=== PATIENT | male | born 1995 | race Caucasian/White ===

== ENCOUNTER 2022-07-14 23:50 | Emergency (ER) | payer OTHER, SELFPAY ==
[2022-07-14 23:54] VITALS: BP 169/99; PULSE 93; RESP 20; TEMP 36.4; O2SAT 100
[2022-07-15] VITALS (8 sets, daily range): BP systolic 136–170; BP diastolic 64–75; PULSE 78–111; RESP 12–19; O2SAT 97–100
--- NOTE | 2022-07-15 01:43 | ECG_ITS ---
Measurements Intervals [place] Rate: 98 P: 62 FL: 149 QRS: 53 QRSD: 90 T: 19 QT: 332 QTc: 425 Interpretive Statements SINUS RHYTHM WITH SINUS ARRHYTHMIA NORMAL ECG NO PREVIOUS ECG AVAILABLE FOR COMPARISON Electronically Signed On 07-15-2022 5:51:32 FIBER ANALYST by Dm Patton D.O.
--- NOTE | 2022-07-15 01:44 | ED.GENADULT ---
HPI - General Adult General Chief complaint: Anxiety Stated complaint: My pupils are huge Time Seen by Provider: 07/15/22 01:35 History of Present Illness HPI narrative: 27-year-old male presents to the emergency room for evaluation of anxiety, palpitations after drinking kratom. Patient states that he uses kratom daily to keep himself awake while at work. Reports taking the drink from another employee and began experiencing anxiety soon thereafter. Patient denies any chest pain or shortness of breath. Related Data Allergies Allergy/AdvReac Type Severity Reaction Status Date / Time No Known Allergies Allergy Verified 07/15/22 02:00 Review of Systems Review of Systems: CONSTITUTIONAL: Denies fever, chills, or sweats. EYES: Denies visual changes, redness, or discharge. ENT: Denies rhinorrhea, congestion, sore throat, or otalgia. CARDIOVASCULAR: Reports palpitations RESPIRATORY: Denies cough or dyspnea. GASTROINTESTINAL: Denies abdominal pain, nausea, vomiting, or diarrhea. GENITOURINARY: Denies dysuria or hematuria. SKIN: Denies rash or itching. MUSCULOSKELETAL: Denies back pain, joint pain, or myalgia. NEUROLOGIC: Denies headache, numbness, dizziness, or weakness. PSYCHIATRIC: Denies anxiety or depression. [facility] Social History Social History Substance use type: former substance user Exam Narrative: GENERAL: Well-appearing, well-nourished, no physical limitations, and in no acute distress. HEAD: Normocephalic, atraumatic. EYES: Conjunctivae normal, PERRLA and EOMI. CHEST: Clear to auscultation. No respiratory distress. No wheezes rales or rhonchi. HEART: Sinus tachycardia. No murmur heard. Normal peripheral pulses. ABDOMEN: Soft, nontender, nondistended, normal active bowel sounds. EXTREMITIES: Normal range of motion. No edema. No clubbing or cyanosis SKIN: Warm, dry, no rash. No noted wounds NEURO: No focal deficits. Alert and oriented x3. MAEW. CN's II-XI intact bilaterally, normal gait PSYCH: Cooperative. Anxious Course Vital Signs Vital signs: Vital Signs Temperature 36.4 C L 07/14/22 23:54 Pulse Rate 93 07/14/22 23:54 Respiratory Rate 20 07/14/22 23:54 Blood Pressure 169/99 H 07/14/22 23:54 Pulse Oximetry 100 07/14/22 23:54 Oxygen Delivery Room Air 07/14/22 23:54 Temperature 36.4 C L 07/14/22 23:54 Pulse Rate 91 07/15/22 03:30 Respiratory Rate 15 07/15/22 03:30 Blood Pressure 136/64 07/15/22 03:30 Pulse Oximetry 100 07/15/22 03:30 Oxygen Delivery Room Air 07/14/22 23:54 Medical Decision Making Vital Signs Vital Signs: Vital Signs Temperature 36.4 C L 07/14/22 23:54 Pulse Rate 93 07/14/22 23:54 Respiratory Rate 20 07/14/22 23:54 Blood Pressure 169/99 H 07/14/22 23:54 Pulse Oximetry 100 07/14/22 23:54 Oxygen Delivery Room Air 07/14/22 23:54 Temperature 36.4 C L 07/14/22 23:54 Pulse Rate 91 07/15/22 03:30 Respiratory Rate 15 07/15/22 03:30 Blood Pressure 136/64 07/15/22 03:30 Pulse Oximetry 100 07/15/22 03:30 Oxygen Delivery Room Air 07/14/22 23:54 Lab Data Result diagrams: 07/15/22 01:51 07/15/22 01:51 Labs: Lab Results 07/15/22 07/15/22 07/15/22 Range/Units 01:51 01:51 01:51 WBC 11.5 H (4.5-10.0) K/mm3 RBC 5.34 (4.6-6.20) M/mm3 Hgb 16.9 (14.0-18.0) g/dL Hct 47.8 (42.0-52.0) % MCV 89.5 (80-100) fl MCH 31.6 (26-34) pg MCHC 35.4 (32-36) g/dl RDW 12.5 (11.5-14.5) % Plt Count 267 (150-375) k/mm3 MPV 9.5 (7.4-10.4) fl Immature Gran % (Auto) 0.3 (0-0.5) % Neut % (Auto) 82.8 H (45.5-73.1) % Lymph % (Auto) 9.2 L (18.3-44.2) % [place] % (Auto) 7.5 (2.6-8.5) % Eos % (Auto) 0.0 (0-4.4) % Baso % (Auto) 0.2 (0.2-1.2) % Lymph # (Auto) 1.06 (0.9-3.2) K/mm3 [place] # (Auto) 0.9 H (0.1-0.6) K/mm3 Eos # (Auto) 0.0 (0-0.3) K/mm3 Baso # (
[2022-07-15 01:58] LABS: Basophils Percent Auto 0.2 % (0.2-1.2); Hematocrit 47.8 % (42.0-52.0); Hemoglobin 16.9 g/dL (14.0-18.0); Immature Granulocyte Absolute 0.03 K/mm3 (0.00-0.031); Immature Granulocyte Percent A 0.3 % (0-0.5); Lymphocytes Absolute Auto 1.06 K/mm3 (0.9-3.2); Lymphocytes Percent Auto 9.2 % (18.3-44.2); Mean Corpuscular HGB Conc 35.4 g/dl (32-36); Mean Corpuscular Hemoglobin 31.6 pg (26-34); Mean Corpuscular Volume 89.5 fl (80-100); Mean Platelet Volume 9.5 fl (7.4-10.4); Monocytes Absolute Auto 0.9 K/mm3 (0.1-0.6); Monocytes Percent Auto 7.5 % (2.6-8.5); Neutrophils Absolute Auto 9.5 K/mm3 (1.3-6.7); Neutrophils Percent Auto 82.8 % (45.5-73.1); Platelet Count Result 267 k/mm3 (150-375); Red Blood Count 5.34 M/mm3 (4.6-6.20); Red Cell Distribution Width 12.5 % (11.5-14.5); White Blood Count 11.5 K/mm3 (4.5-10.0)
[2022-07-15] MEDS: LORazepam INJ (*CRX) 2 MG/ML VIAL 1 MG IV PUSH (02:01)
[2022-07-15] MEDS: SODIUM CHLORIDE 0.9% IV 1,000 ML 999 ML IV CONT (02:02)
[2022-07-15 02:26] LABS: Troponin I < 0.012 ng/mL (0.000-0.034)
[2022-07-15 02:38] LABS: Appearance Urine Clear (Clear); Bilirubin Urine Negative (Negative); Blood Urine Negative (Negative); Color Urine Yellow (Yellow); Glucose Urine UA Negative (Negative); Ketones Urine Negative (Negative); Leukocyte Esterase Ur Negative LEU/UL (Negative); Nitrate Urine Negative (Negative); Protein Urine Negative (Negative); Specific Grav Ur <= 1.005 (1.001-1.035); Urobilinogen Urine 0.2 mg/dL (<2.0)
[2022-07-15 02:39] LABS: RBC Urine 0-2 /hpf (0-2)
[2022-07-15 02:40] LABS: Add Urine Microscopic? NO
[2022-07-15 02:45] LABS: Alanine Aminotransferase 46 U/L (6-50); Albumin Level 5.3 g/dL (3.5-5.1); Alkaline Phosphatase 98 U/L (38-126); Anion Gap 15 mmol/L (8-16); Aspartate Amino Transferase 40 U/L (17-59); Blood Urea Nitrogen 11 mg/dL (9-20); Calcium 9.6 mg/dL (8.4-10.2); Carbon Dioxide 25 mmol/L (22-30); Chloride 98 mmol/L (98-107); Estimated CRCL calculation 121 ml/min; Estimated Glomerular Filt Rate > 60; Glucose 127 mg/dL (65-110); Potassium 3.4 mmol/L (3.4-5.0); Sodium 138 mmol/L (137-145)
[2022-07-15 02:48] LABS: Barbiturate Screen Urine Negative (Negative); Benzodiazepines Screen Urine Negative (Negative)
[2022-07-15 03:18] LABS: Amphetamine Screen Urine Positive (Negative)
[2022-07-15 03:42] LABS: Cannabinoid Screen Urine Negative (Negative); Cocaine Screen Urine Negative (Negative); Methadone Screen Urine Negative (Negative); Opiate Screen Urine Negative (Negative); Phencyclidine Screen Urine Negative (Negative)
== END 2022-07-15 03:30 | disposition home or self-care (01) ==
PROVIDERS: Emergency Provider Nurse Practitioner Family
DX: F41.9 Anxiety disorder, unspecified (principal)
CPT/HCPCS: 36415; 80053; 80307; 81003; 84484; 85025; 93005; 96361; 96374; 99284; J2060; J7030

== ENCOUNTER 2022-09-08 19:22 | Emergency (ER) | payer OTHER, SELFPAY ==
[2022-09-08 19:24] VITALS: BP 152/84; PULSE 87; RESP 18; TEMP 36.6; O2SAT 97
[2022-09-08 19:36] LABS: Glucose Point of Care 109 mg/dl (65-105)
--- NOTE | 2022-09-08 20:38 | PC.NURSE ---
Called pt at 2023 and 2024 with no answer
--- NOTE | 2022-09-08 20:48 | PC.NURSE ---
Pt called for room at 2023 with no response and then again at 2025 with no response. This nurse called again at this time, with no response, and pt not seen in ED lobby or bathroom at this time.
== END 2022-09-08 20:29 | disposition left against medical advice (07) ==
PROVIDERS: Emergency Provider Emergency Medicine
DX: R10.9 Unspecified abdominal pain (principal)
CPT/HCPCS: 82948; 99199

== ENCOUNTER 2022-10-29 05:45 | Emergency (ER) | payer OTHER, SELFPAY ==
[2022-10-29] VITALS (13 sets, daily range): BP systolic 120–153; BP diastolic 64–86; PULSE 58–94; RESP 11–22; TEMP 36.6; O2SAT 97–100
--- NOTE | ~2022-10-29 | XR_ITS ---
Clinical Indication: Chest pain PA and lateral views of the chest: Comparison: None Findings: The lungs are clear, without evidence of focal consolidation or pleural effusion. Cardiome diastinal silhouette is within normal limits. Bones and soft tissues are unremarkable. Impression: Normal chest. Reviewed, dictated and finalized at location . 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
--- NOTE | 2022-10-29 05:51 | ECG_ITS ---
Measurements Intervals [place] Rate: 82 P: 45 MT: 159 QRS: 35 QRSD: 93 T: 10 QT: 338 QTc: 395 Interpretive Statements SINUS RHYTHM BASELINE ARTIFACT- I, III, AVL NORMAL ECG COMPARED TO ECG 07/15/2022 02:08:44 NO SIGNIFICANT CHANGES Electronically Signed On 10-29-2022 6:38:22 GRAIN I FARMWORKER by Dm Patton D.O.
[2022-10-29 06:13] LABS: Basophils Percent Auto 0.5 % (0.2-1.2); Eosinophils Absolute Auto 0.1 K/mm3 (0-0.3); Eosinophils Percent Auto 1.5 % (0-4.4); Hematocrit 46.4 % (42.0-52.0); Hemoglobin 16.5 g/dL (14.0-18.0); Immature Granulocyte Absolute 0.01 K/mm3 (0.00-0.031); Immature Granulocyte Percent A 0.2 % (0-0.5); Lymphocytes Absolute Auto 2.15 K/mm3 (0.9-3.2); Lymphocytes Percent Auto 39.4 % (18.3-44.2); Mean Corpuscular HGB Conc 35.6 g/dl (32-36); Mean Corpuscular Hemoglobin 31.4 pg (26-34); Mean Corpuscular Volume 88.2 fl (80-100); Mean Platelet Volume 9.3 fl (7.4-10.4); Monocytes Absolute Auto 0.5 K/mm3 (0.1-0.6); Monocytes Percent Auto 9.9 % (2.6-8.5); Neutrophils Absolute Auto 2.7 K/mm3 (1.3-6.7); Neutrophils Percent Auto 48.5 % (45.5-73.1); Platelet Count Result 270 k/mm3 (150-375); Red Blood Count 5.26 M/mm3 (4.6-6.20); Red Cell Distribution Width 11.8 % (11.5-14.5); White Blood Count 5.5 K/mm3 (4.5-10.0)
[2022-10-29 06:25] LABS: Alanine Aminotransferase 49 U/L (6-50); Alkaline Phosphatase 81 U/L (38-126); Anion Gap 7 mmol/L (8-16); Aspartate Amino Transferase 31 U/L (17-59); Bilirubin,Total 0.7 mg/dL (0.2-1.3); Blood Urea Nitrogen 14 mg/dL (9-20); Calcium 9.1 mg/dL (8.4-10.2); Carbon Dioxide 28 mmol/L (22-30); Chloride 102 mmol/L (98-107); Estimated CRCL calculation 134 ml/min; Estimated Glomerular Filt Rate > 60; Glucose 105 mg/dL (65-110); Lipase 32 U/L (23-300); Potassium 3.6 mmol/L (3.4-5.0); Sodium 137 mmol/L (137-145)
[2022-10-29 06:36] LABS: Troponin I < 0.012 ng/mL (0.000-0.034)
[2022-10-29 06:37] LABS: INR 1.1
[2022-10-29 06:38] LABS: Partial Thromboplastin Time 31.1 SECONDS (22.3-36.8)
--- NOTE | 2022-10-29 07:37 | ED.GENADULT ---
HPI - General Adult General Chief complaint: Chest Pain Stated complaint: chest pain Time Seen by Provider: 10/29/22 07:01 History of Present Illness HPI narrative: 27-year-old male presenting to the emergency department for evaluation of left lateral sternal chest pain. Patient states the pain does occur intermittently and is short lasting. Patient states he had an episode yesterday where he was laughing where he had a quick short sharp pain that immediately resolved. Patient describes the pain as being just left of his sternum. Patient denied any radiation of the pain denies associated nausea vomiting or diaphoresis. Patient states when he woke up this morning he had a similar pain which she described as a light chest pain. Patient states the pain is exacerbated with movement of the left arm. Patient denies any current chest pain or shortness of breath. With the pain that he had this morning patient also denies any associate nausea vomiting or diaphoresis. Patient denies any prior history of hypertension high cholesterol or heart disease. Patient has not yet had follow-up with his primary care physician for this pain. 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 Patient has not attempted to take any medications for pain control for this. Related Data Allergies Allergy/AdvReac Type Severity Reaction Status Date / Time No Known Allergies Allergy Verified 09/08/22 19:27 Review of Systems Review of Systems: CONSTITUTIONAL: Denies fever, chills, or sweats. EYES: Denies visual changes, redness, or discharge. ENT: Denies rhinorrhea, congestion, sore throat, or otalgia. CARDIOVASCULAR: See HPI RESPIRATORY: Denies cough or dyspnea. GASTROINTESTINAL: Denies abdominal pain, nausea, vomiting, or diarrhea. GENITOURINARY: Denies dysuria or hematuria. SKIN: Denies rash or itching. MUSCULOSKELETAL: Denies back pain, joint pain, or myalgia. NEUROLOGIC: Denies headache, numbness, or weakness. PSYCHIATRIC: History of anxiety PMFSH Social History Social History Substance use type: former substance user Exam Narrative: APPEARANCE: Well appearing, no pain, no distress, well-nourished. HEAD: normocephalic, atraumatic. EYES: PERRLA/EOMI, conjunctivae clear. NOSE: Normal no drainage NECK: Supple. No adenopathy, no masses. RESPIRATORY: Airway patent, respirations nonlabored. Clear to auscultation bilaterally, no rales, rhonchi, wheezing. CARDIOVASCULAR: Regular rate and rhythm without murmurs rubs or gallops. ABDOMINAL: Soft, nontender, nondistended, normal bowel sounds MUSCULOSKELETAL: Moves all extremities. Strength/ROM intact, No edema, No calf tenderness. NEURO: Alert. Cranial nerves II through XII intact. Good gait. Good coordination SKIN: Warm, dry. Normal Color Course Course Emergency Course: 27-year-old male presenting for concern of left lateral sternal pain. Into be very atypical for ACS. Patient had an EKG which showed normal sinus rhythm. Chest x-ray showed normal chest - so no evidence of pneumonia or pneumothorax. Patient's initial troponin was negative patient's pain is reproducible with movement of the left arm. Some tenderness to palpation of the left lateral sternum. ACS is being ruled out. No evidence of pneumonia or pneumothorax. Exam and story is consistent with a costochondritis versus muscular strain. Patient was treated with Toradol in the emergency department. Patient agreed to stay for a repeat troponin. Patient was updated on the suspected cause of his pain and was also strongly encouraged to have close follow-up with his primary care physician and to have outpatient cardiac testing as needed. Patient's blood pressures were also mildly elevated. 9:15 AM patient denies any current chest pain. Patient's delta troponin was negative. On examination patient was well-appearing and was comfortable with the plan for discharg
[2022-10-29] MEDS: KETOROLAC 15 MG/ML VIAL (*BKC) IV PUSH (07:50)
[2022-10-29 09:05] LABS: Troponin I < 0.012 ng/mL (0.000-0.034)
== END 2022-10-29 10:16 | disposition home or self-care (01) ==
PROVIDERS: Emergency Medicine; Emergency Provider Emergency Medicine
DX: R07.9 Chest pain, unspecified (principal); M94.0 Chondrocostal junction syndrome [Tietze]
CPT/HCPCS: 36415; 71046; 80053; 83690; 84484; 85025; 85610; 85730; 93005; 96374; 99284; J1885

== ENCOUNTER 2023-01-01 20:26 | Emergency (ER) | payer OTHER, SELFPAY ==
--- NOTE | ~2023-01-01 | XR_ITS ---
EXAMINATION: XR chest 2V Exam Date/Time: 01/01/2023 20:39 CDT HISTORY: chest pain Comparison: 10/29/2022. RESULT: Lines, tubes, and devices: None. Lungs and pleura: Clear. Cardiomediastinal silhouette: Stable. Other: No acute osseous or upper abdominal finding. IMPRESSION: No acute cardiopulmonary process. Reviewed, dictated and finalized at location K.
--- NOTE | 2023-01-01 20:27 | ECG_ITS ---
Measurements Intervals [place] Rate: 123 P: 60 [place]: 149 QRS: 52 QRSD: 85 T: -2 QT: 291 QTc: 418 Interpretive Statements SINUS TACHYCARDIA BORDERLINE ST-T WAVE ABNORMALITY- INFERIOR LEADS BASELINE WANDER- I, II, III, V2 ABNORMAL ECG COMPARED TO ECG 10/29/2022 05:56:44 SINUS TACHYCARDIA NOW PRESENT Electronically Signed On 01-01-2023 21:20:32 CDT by Dm Patton D.O.
[2023-01-01 20:39] VITALS: BP 176/81; PULSE 128; RESP 20; TEMP 36.9; O2SAT 99
[2023-01-01 20:43] LABS: Basophils Absolute Auto 0.1 K/mm3 (0.0-0.1); Basophils Percent Auto 0.5 % (0.2-1.2); Eosinophils Absolute Auto 0.1 K/mm3 (0-0.3); Eosinophils Percent Auto 0.9 % (0-4.4); Hematocrit 48.2 % (42.0-52.0); Hemoglobin 17.3 g/dL (14.0-18.0); Immature Granulocyte Absolute 0.02 K/mm3 (0.00-0.031); Immature Granulocyte Percent A 0.2 % (0-0.5); Lymphocytes Absolute Auto 4.35 K/mm3 (0.9-3.2); Lymphocytes Percent Auto 42.6 % (18.3-44.2); Mean Corpuscular HGB Conc 35.9 g/dl (32-36); Mean Corpuscular Hemoglobin 31.1 pg (26-34); Mean Corpuscular Volume 86.5 fl (80-100); Monocytes Absolute Auto 0.7 K/mm3 (0.1-0.6); Monocytes Percent Auto 6.8 % (2.6-8.5); Platelet Count Result 276 k/mm3 (150-375); Red Blood Count 5.57 M/mm3 (4.6-6.20); Red Cell Distribution Width 12.4 % (11.5-14.5); White Blood Count 10.2 K/mm3 (4.5-10.0)
[2023-01-01 21:04] LABS: Prothrombin Time 13.6 Seconds (11.1-14.7)
[2023-01-01 21:05] LABS: Partial Thromboplastin Time 23.3 SECONDS (22.3-36.8)
[2023-01-01 21:11] LABS: Troponin I < 0.012 ng/mL (0.000-0.034)
[2023-01-01 21:15] LABS: Alanine Aminotransferase 63 U/L (6-50); Alkaline Phosphatase 104 U/L (38-126); Anion Gap 15 mmol/L (8-16); Aspartate Amino Transferase 46 U/L (17-59); Bilirubin,Total 0.6 mg/dL (0.2-1.3); Blood Urea Nitrogen 14 mg/dL (9-20); Calcium 8.7 mg/dL (8.4-10.2); Carbon Dioxide 21 mmol/L (22-30); Chloride 104 mmol/L (98-107); Estimated CRCL calculation 121 ml/min; Estimated Glomerular Filt Rate > 60; Glucose 112 mg/dL (65-110); Lipase 45 U/L (23-300); Potassium 3.7 mmol/L (3.4-5.0); Sodium 140 mmol/L (137-145)
--- NOTE | 2023-01-01 23:06 | PC.NURSE ---
This RN assumed care of patient.
[2023-01-01] MEDS: ASPIRIN 81 MG CHEWABLE TABLET 324 MG PO (23:11)
[2023-01-01 23:12] VITALS: BP 143/71; PULSE 92; RESP 19; O2SAT 97
[2023-01-02 00:07] LABS: Troponin I < 0.012 ng/mL (0.000-0.034)
--- NOTE | 2023-01-02 00:42 | ED.GENADULT ---
HPI - General Adult General Chief complaint: Chest Pain Stated complaint: intermittent chest pain Time Seen by Provider: 01/01/23 22:39 History of Present Illness HPI narrative: Patient 27-year-old gentleman who presents emergency department with chief complaint of chest pain. Patient reports has been having episodes where he is felt as though his heart is been beating fast and also has had episodes where he feels as though there is tightness in his chest. The patient reports he still has a little bit of tightness in his chest at this point and reports that his blood pressure has been running on the higher side lately and is currently not on any blood pressure medicines. Patient has been seen in the emergency department fairly recently for similar episode and has not followed up with a primary care provider as of yet. Related Data Allergies Allergy/AdvReac Type Severity Reaction Status Date / Time No Known Allergies Allergy Verified 09/08/22 19:27 Review of Systems Review of Systems: A 10 system review of systems was completed on the patient and is negative except for what is stated in the HPI. Nursing and ancillary documentation was reviewed. [facility] Social History Social History Substance use type: former substance user Exam Narrative: GENERAL: Well-appearing, well-nourished, and in no acute distress. HEAD: Normocephalic, atraumatic. EYES: PERRLA and EOMI. ENT: Nares clear, no rhinorrhea or epistaxis. Mucous membranes moist. NECK: Supple. CHEST: Clear to auscultation. No respiratory distress. HEART: Regular rate and rhythm. No murmur heard. Normal peripheral pulses. ABDOMEN: Soft, nontender, nondistended, normal active bowel sounds. EXTREMITIES: Normal range of motion. No edema. SKIN: Warm, dry, no rash. NEURO: No focal deficits. Alert and oriented x3. PSYCH: Normal mood and affect. Course Course Emergency Course: Differential diagnosis includes ACS, hypertensive urgency, atypical chest pain. Chest x-ray showed no focal infiltrate EKG shows sinus tachycardia rate of [address] elevation or ST depression Laboratory studies were obtained which showed normal CBC electrolytes were within normal limits bilirubin was 0.6 lipase was 45 troponin was 9 less than 0.012 for both 0-hour and 3-hour. Vital Signs Vital signs: Vital Signs Temperature 36.9 C 01/01/23 20:39 Pulse Rate 128 H 01/01/23 20:39 Respiratory Rate 20 01/01/23 20:39 Blood Pressure 176/81 H 01/01/23 20:39 Pulse Oximetry 99 01/01/23 20:39 Oxygen Delivery Room Air 01/01/23 20:39 Temperature 36.9 C 01/01/23 20:39 Pulse Rate 92 01/01/23 23:12 Respiratory Rate 19 01/01/23 23:12 Blood Pressure 143/71 H 01/01/23 23:12 Pulse Oximetry 97 01/01/23 23:12 Oxygen Delivery Room Air 01/01/23 23:12 Medical Decision Making Vital Signs Vital Signs: Vital Signs Temperature 36.9 C 01/01/23 20:39 Pulse Rate 128 H 01/01/23 20:39 Respiratory Rate 20 01/01/23 20:39 Blood Pressure 176/81 H 01/01/23 20:39 Pulse Oximetry 99 01/01/23 20:39 Oxygen Delivery Room Air 01/01/23 20:39 Temperature 36.9 C 01/01/23 20:39 Pulse Rate 92 01/01/23 23:12 Respiratory Rate 19 01/01/23 23:12 Blood Pressure 143/71 H 01/01/23 23:12 Pulse Oximetry 97 01/01/23 23:12 Oxygen Delivery Room Air 01/01/23 23:12 Lab Data 01/01/23 20:38 01/01/23 20:38 Labs: Lab Results 01/01/23 01/01/23 Range/Units 20:38 23:39 WBC 10.2 H (4.5-10.0) K/mm3 RBC 5.57 (4.6-6.20) M/mm3 Hgb 17.3 (14.0-18.0) g/dL Hct 48.2 (42.0-52.0) % MCV 86.5 (80-100) fl MCH 31.1 (26-34) pg MCHC 35.9 (32-36) g/dl RDW 12.4 (11.5-14.5) % Plt Count 276 (150-375) k/mm3 MPV 9.0 (7.4-10.4) fl Immature Gran % (Auto) 0.2 (0-0.5) % Neut % (Auto) 49.0 (45.5-73.1) % Lymph % (Auto) 42
[2023-01-02 00:55] VITALS: BP 144/67; PULSE 81; RESP 15; O2SAT 99
== END 2023-01-02 01:01 | disposition home or self-care (01) ==
PROVIDERS: Emergency Provider Emergency Medicine
DX: R07.89 Other chest pain (principal); R00.0 Tachycardia, unspecified; R94.31 Abnormal electrocardiogram [ECG] [EKG]
CPT/HCPCS: 36415; 71046; 80053; 83690; 84484; 85025; 85610; 85730; 93005; 99284; A9270

== ENCOUNTER 2023-02-15 19:26 | Emergency (ER) | payer OTHER, SELFPAY ==
[2023-02-15 19:49] VITALS: BP 148/96; PULSE 103; RESP 16; TEMP 36.6; O2SAT 96
--- NOTE | 2023-02-15 21:45 | PC.NURSE ---
pt called to go back to room, no answer x2
== END 2023-02-15 21:45 | disposition left against medical advice (07) ==
DX: R42 Dizziness and giddiness (principal)
CPT/HCPCS: 99199

== ENCOUNTER 2023-08-05 16:30 | Emergency (ER) | payer OTHER, SELFPAY ==
[2023-08-05 16:46] VITALS: BP 153/96; PULSE 106; RESP 20; TEMP 37.1; O2SAT 96
== END 2023-08-05 18:00 | disposition left against medical advice (07) ==
DX: R42 Dizziness and giddiness (principal)
CPT/HCPCS: 99199

== ENCOUNTER 2023-10-20 09:04 | Emergency (ER) | payer OTHER, SELFPAY ==
--- NOTE | ~2023-10-20 | XR_ITS ---
EXAMINATION: XR chest 2V DATE: 10/20/2023 09:45 INDICATION: Cough, fatigue, sore throat and chills TECHNIQUE: PA and lateral views of the chest were obtained. COMPARISON: Chest radiograph dated 01/01/2023 FINDINGS: The lungs remain clear with no focal airspace opacities, pulmonary edema, pleural effusion or pneumot horax. The cardiomediastinal silhouette is normal. Mild to moderate thoracic spondylosis. IMPRESSION: 1. No acute cardiopulmonary disease. Reviewed, dictated and finalized at location A. 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
[2023-10-20 09:17] VITALS: BP 161/83; PULSE 118; RESP 18; TEMP 38.6; O2SAT 98
[2023-10-20 09:56] LABS: Strep Group A RT-PCR NOT DETECTED (Negative)
[2023-10-20 10:08] LABS: Influenza A QL RT-PCR Positive (Negative); Influenza B QL RT-PCR Negative (Negative); RSV RNA, RT-PCR Negative (Negative); SARS-CoV-2 RNA PCR Positive (Negative)
--- NOTE | 2023-10-20 11:17 | ED.GENADULT ---
HPI - General Adult General Chief complaint: Upper Respiratory Infection Stated complaint: URI Time Seen by Provider: 10/20/23 10:50 History of Present Illness HPI narrative: Patient is a 28-year-old male who presents ER with a viral syndrome. He woke up this morning sinus congestion sore throat and cough. He has been having fevers and body aches. No known sick contacts. Related Data Allergies Allergy/AdvReac Type Severity Reaction Status Date / Time No Known Allergies Allergy Verified 10/20/23 11:15 Review of Systems Constitutional: Constitutional: Reports chills, Reports fatigue and Reports fever(s) ENT: Reports nasal congestion and Reports sore throat Respiratory: Respiratory: Reports cough, Denies dyspnea and Denies wheezing PMFSH Past Medical History Medical History (Updated 10/20/23 @ 18:51 by Deondre Jennings MD) Healthy adult male Surgical History Surgical History (Updated 10/20/23 @ 18:51 by Deondre Jennings MD) No pertinent past surgical history Social History Social History Substance use type: former substance user Exam Narrative: GENERAL: Well-appearing, well-nourished, and in no acute distress. HEAD: Normocephalic, atraumatic. ENT: Mucous membranes moist. NECK: Supple. CHEST: Clear to auscultation. No respiratory distress. HEART: tachycardic and regular. Normal peripheral pulses. NEURO: Alert and oriented x3. PSYCH: Normal mood and affect. Course Course Emergency Course: discussed diagnosis and treatment plan. Will start Tamiflu. Vital Signs Vital signs: Vital Signs Temperature 101.4 F H 10/20/23 09:17 Pulse Rate 118 H 10/20/23 09:17 Respiratory Rate 18 10/20/23 09:17 Blood Pressure 161/83 H 10/20/23 09:17 Pulse Oximetry 98 10/20/23 09:17 Temperature 101.4 F H 10/20/23 09:17 Pulse Rate 118 H 10/20/23 09:17 Respiratory Rate 18 10/20/23 09:17 Blood Pressure 161/83 H 10/20/23 09:17 Pulse Oximetry 98 10/20/23 09:17 Medical Decision Making Vital Signs Vital Signs: Vital Signs Temperature 101.4 F H 10/20/23 09:17 Pulse Rate 118 H 10/20/23 09:17 Respiratory Rate 18 10/20/23 09:17 Blood Pressure 161/83 H 10/20/23 09:17 Pulse Oximetry 98 10/20/23 09:17 Temperature 101.4 F H 10/20/23 09:17 Pulse Rate 118 H 10/20/23 09:17 Respiratory Rate 18 10/20/23 09:17 Blood Pressure 161/83 H 10/20/23 09:17 Pulse Oximetry 98 10/20/23 09:17 Lab Data Labs: Lab Results 10/20/23 10/20/23 Range/Units 09:22 09:23 Influenza A (RT-PCR) Positive A (Negative) Influenza B (RT-PCR) Negative (Negative) RSV (RT-PCR) Negative (Negative) SARS-CoV-2 RNA (RT-PCR) Positive A (Negative) Group A Strep (PCR) Not detected (Negative) Discharge Plan Discharge Clinical Impression: Influenza, COVID Patient Disposition: Home, Self-Care Condition: Stable Instructions: Influenza (ED), COVID-19 (Coronavirus Disease 2019) (ED) Additional Instructions: As discussed you have a viral illness. Unfortunately there are no specific medications we can give you to make the illness end faster. Antibiotics do not work for viral illnesses. However, you can take Acetaminophen or Ibuprofen to help with fevers and pain. Stay well hydrated and rested. Return to the emergency department if your fevers and chills continue to worse after 5 days, if you develop worsening cough with thick sputum, or are unable to stay hydrated. Contact your primary care provider in the next few days for a re-evaluation and to make sure your symptoms are improving. Prescriptions: New oseltamivir [Tamiflu] 75 mg capsule 75 mg PO Q12H 5 Days Qty: 10 0RF No Action hydroxyzine HCl 25 mg tablet 25 mg PO TID PRN (Reason: anxiety) Qty: 30 0RF Follow-up/Referrals: PHYSICIAN,DIRECTOR OF BLOOD [Primary Care Provider] - Maury Kenny MD [Physician] -
[2023-10-20] MEDS: ACETAMINOPHEN 325 MG TABLET 650 MG PO (11:59)
== END 2023-10-20 12:01 | disposition home or self-care (01) ==
LOC: ANHED 11:55
PROVIDERS: Emergency Provider Emergency Medicine
DX: U07.1 COVID-19 (principal); J10.1 Influenza due to other identified influenza virus with other respiratory manifestations
CPT/HCPCS: 71046; 87637; 87651; 99283; A9270

== ENCOUNTER 2023-12-06 09:21 | Emergency (ER) | payer OTHER, SELFPAY ==
--- NOTE | ~2023-12-06 | CT_ITS ---
EXAMINATION: CTA chest PE abdomen pel DATE: 12/06/2023 13:04 INDICATION: Shortness of breath. Chest pain. TECHNIQUE: Computed tomography angiography (CTA) of the chest was performed with 100 mL Omnipaque-350 intravenous contrast timed to evaluate the pulmonary arteries. Coronal maximum intensity projection 3D-reconstructions were created by the technologist. Computed tomography (CT) of the abdomen and pelv is was performed with intravenous contrast. Automated exposure control and iterative reconstruction t echnique were employed. The dose-length product was 1975.95 mGy-cm. COMPARISON: None. FINDINGS: CTA chest: There is no pneumonia or pleural effusion. The heart size is normal. No pericardial effusi on. There is no pulmonary embolus. CT abdomen and pelvis: The liver, gallbladder, spleen, pancreas, adrenal glands, and kidneys are norm al. There are no dilated loops of bowel. The appendix is normal. There are no pathologically enlarged lymph nodes. There is no free intraperitoneal fluid. There is mild thoracic and lumbar spondylosis. There is mild chronic anterior wedging of multiple thoracic vertebral bodies. IMPRESSION: 1. No pulmonary embolus. Sensitivity is moderately decreased by motion artifact and suboptimal contra st opacification. Reviewed, dictated and finalized at location A. IMPRESSION: 1. No pulmonary embolus. Sensitivity is moderately decreased by motion artifact and suboptimal contrast opacification.
--- NOTE | ~2023-12-06 | XR_ITS ---
Clinical Indication: Chest pain PA and lateral views of the chest: Comparison: 10/20/2023 Findings: The lungs are clear, without evidence of focal consolidation or pleural effusion. Cardiome diastinal silhouette is within normal limits. Bones and soft tissues are unremarkable. Impression: Normal chest. Reviewed, dictated and finalized at location . Impression: Normal chest.
[2023-12-06 09:30] VITALS: BP 146/97; PULSE 125; RESP 18; TEMP 36.5; O2SAT 97
[2023-12-06 09:40] VITALS: O2SAT 97
[2023-12-06 09:43] VITALS: PULSE 114; O2SAT 100
--- NOTE | 2023-12-06 09:44 | ED.CHESTPAIN ---
HPI - Chest Pain General Chief Complaint: Chest Pain Stated Complaint: palpitations Time Seen by Provider: 12/06/23 09:39 Source: patient Mode of arrival: ambulatory Limitations: no limitations History of Present Illness HPI narrative: Julian is a 28-year-old male patient presenting to the emergency room with complaints of chest pain and palpitations and started around midnight last night. He also reported some associated shortness of breath. Reports that the discomfort comes and goes with movement. Denies having any chest pain right now but still has some palpitations. States he had drink heavily over the weekend and thinks he may be dehydrated. States the chest pain is on the left side of the chest when it was present. He denies any nausea, vomiting, or diarrhea. Denies any abdominal pain. Related Data Allergies Allergy/AdvReac Type Severity Reaction Status Date / Time No Known Allergies Allergy Verified 12/06/23 09:21 Review of Systems Review of Systems: Pertinent positives per HPI. Patient denies any fever, chills, rash, headache, visual changes, dizziness, cough, runny nose, sore throat, shortness of breath,nausea, vomiting, diarrhea, constipation, abdominal pain, or any urinary issues. [facility] Past Medical History Medical History Healthy adult male Surgical History Surgical History No pertinent past surgical history Social History Social History Substance use type: former substance user Comments At the time of my signature, I reviewed and agree with the nursing past medical, surgical, social, and family history. There is no relevant family history pertinent to the patient complaint. Exam Narrative: General: Well-developed, well nourished, in no apparent distress Head: Normocephalic, atraumatic. Cardio: Tachycardic- Regular rate and rhythm, s1 and s2 normal, no murmur appreciated. Resp: Clear to auscultation bilaterally, no rhonchi, rales, wheezing or rubs. Extremities: No deformity, no edema, no cyanosis, capillary refill less than 2 seconds, peripheral pulses palpable and strong. Integumentary: [place], warm, and dry, intact without lesion, no rashes. Course Course Emergency Course: Portions of this record may have been created with voice recognition software. Vital Signs Vital signs: Vital Signs Temperature 36.5 C 12/06/23 09:30 Pulse Rate 125 H 12/06/23 09:30 Respiratory Rate 18 12/06/23 09:30 Blood Pressure 146/97 H 12/06/23 09:30 Pulse Oximetry 97 12/06/23 09:30 Oxygen Delivery Room Air 12/06/23 09:30 Temperature 36.5 C 12/06/23 09:30 Pulse Rate 108 H 12/06/23 13:00 Respiratory Rate 20 12/06/23 13:00 Blood Pressure 150/85 H 12/06/23 10:00 Pulse Oximetry 96 12/06/23 13:00 Oxygen Delivery Room Air 12/06/23 09:43 Vital signs reviewed MDM - Chest Pain MDM Narrative Medical decision making narrative: At the time of visit patient is resting comfortably on the exam table. Patient appears to be nontoxic. EKG: EKG shows sinus tachycardia with nonspecific ST/T wave abnormality. Heart rate was 121 beats per minute Labs: CBC shows a white blood cell count of 7.4, H&H 17.2 and hematocrit of 48.6, platelet count 369, anti coagulation studies within normal limits, D-dimer is pending, sodium level 140, potassium at 3.3, chloride 104, carbon dioxide of 19, anion gap 17, BUN of 4, creatinine is 0.9, GFR is greater than 60, glucose 134, AST and ALT levels are elevated AST at 1:03 a.m., ALT it to 108, troponin less than 0.012, with a total protein of 9.0. D-dimer elevated at 0.61 Hepatitis panel is negative Diagnostics: Chest x-ray is for any acute cardiopulmonary process. CTA of the chest is negative for any pulmonary emboli, CT abdomen pelvis within normal limits. [employer]
[2023-12-06] MEDS: ASPIRIN 81 MG CHEWABLE TABLET 324 MG PO (09:46)
--- NOTE | 2023-12-06 09:46 | ECG_ITS ---
Measurements Intervals [place] Rate: 121 P: 51 [place]: 147 QRS: 34 QRSD: 80 T: -12 QT: 338 AVG RR: 494 QTc: 410 QTCB: 480 QTCF: 427 Interpretive Statements SINUS TACHYCARDIA NONSPECIFIC ST & T WAVE ABNORMALITY ABNORMAL RHYTHM ECG SEE SCANNED COPY FOR SIGNATURE MTDD
[2023-12-06 10:00] VITALS: BP 150/85; PULSE 108; RESP 20; O2SAT 97
[2023-12-06] MEDS: SODIUM CHLORIDE 0.9% IV 1,000 ML 999 ML IV CONT (10:06)
[2023-12-06 10:13] LABS: Basophils Absolute Auto 0.1 K/mm3 (0.0-0.1); Basophils Percent Auto 0.7 % (0.2-1.2); Eosinophils Percent Auto 0.3 % (0-4.4); Hematocrit 48.6 % (42.0-52.0); Hemoglobin 17.2 g/dL (14.0-18.0); Immature Granulocyte Absolute 0.02 K/mm3 (0.00-0.031); Immature Granulocyte Percent A 0.3 % (0-0.5); Lymphocytes Absolute Auto 2.17 K/mm3 (0.9-3.2); Lymphocytes Percent Auto 29.3 % (18.3-44.2); Mean Corpuscular HGB Conc 35.4 g/dl (32-36); Mean Corpuscular Hemoglobin 32.5 pg (26-34); Mean Corpuscular Volume 91.9 fl (80-100); Mean Platelet Volume 8.9 fl (7.4-10.4); Monocytes Absolute Auto 0.8 K/mm3 (0.1-0.6); Monocytes Percent Auto 10.5 % (2.6-8.5); Neutrophils Absolute Auto 4.4 K/mm3 (1.3-6.7); Neutrophils Percent Auto 58.9 % (45.5-73.1); Platelet Count Result 369 k/mm3 (150-375); Red Blood Count 5.29 M/mm3 (4.6-6.20); Red Cell Distribution Width 13.5 % (11.5-14.5); White Blood Count 7.4 K/mm3 (4.5-10.0)
[2023-12-06 10:24] LABS: INR 1.1; Partial Thromboplastin Time 27.4 Seconds (22.3-36.8); Prothrombin Time 14.3 Seconds (11.1-14.7)
[2023-12-06 10:38] LABS: Alanine Aminotransferase 208 U/L (6-50); Albumin Level 4.8 g/dL (3.5-5.1); Alkaline Phosphatase 116 U/L (38-126); Anion Gap 17 mmol/L (4-12); Aspartate Amino Transferase 103 U/L (17-59); Bilirubin,Total 0.7 mg/dL (0.2-1.3); Blood Urea Nitrogen 4 mg/dL (9-20); Calcium 9.4 mg/dL (8.4-10.2); Carbon Dioxide 19 mmol/L (22-30); Chloride 104 mmol/L (98-107); Estimated CRCL calculation 137 ml/min; Estimated Glomerular Filt Rate > 60; Glucose 134 mg/dL (65-110); Lipase 38 U/L (23-300); Potassium 3.3 mmol/L (3.4-5.0); Sodium 140 mmol/L (137-145)
[2023-12-06 10:42] LABS: Troponin I < 0.012 ng/mL (0.000-0.034)
[2023-12-06 10:56] LABS: D Dimer 0.61 ug/mL (<0.48)
[2023-12-06 11:23] LABS: NT Pro B Type Natriuretic Pept < 20 pg/mL (19.9-100)
[2023-12-06 11:51] LABS: Hepatitis B Surface Antigen Negative (Negative)
[2023-12-06 11:57] LABS: HAV RESULT Negative (Negative); Hepatitis B Core IgM Result Negative (Negative)
[2023-12-06 12:08] LABS: Hepatitis C Virus Antibody Negative (Negative)
[2023-12-06 13:00] VITALS: PULSE 108; RESP 20; O2SAT 96
[2023-12-06 13:43] LABS: Troponin I < 0.012 ng/mL (0.000-0.034)
[2023-12-06 14:41] VITALS: BP 141/83; PULSE 81; RESP 15; TEMP 36.9; O2SAT 99
== END 2023-12-06 14:42 | disposition home or self-care (01) ==
PROVIDERS: Emergency Medicine; Emergency Provider Nurse Practitioner Family
DX: R07.89 Other chest pain (principal); F10.10 Alcohol abuse, uncomplicated; R74.01 Elevation of levels of liver transaminase levels
CPT/HCPCS: 36415; 71046; 71275; 74177; 80053; 80074; 83690; 83880; 84484; 85025; 85380; 85610; 85730; 93005; 96360; 96361; 99284; A9270; J7030; Q9967

== ENCOUNTER 2024-06-19 09:50 | Emergency (ER) | payer OTHER, SELFPAY ==
[2024-06-19] VITALS (7 sets, daily range): BP systolic 142–163; BP diastolic 88–94; PULSE 86–120; RESP 16–20; TEMP 36.5–36.6; O2SAT 96–100
--- NOTE | ~2024-06-19 | XR_ITS ---
XR chest 2V Ordering provider: Clemencia Tinoco APRN History: 29 years Male with . crackles upon auscultation, COUGH, CONGESTION . Comparison: December 06, 2023 FINDINGS: MEDIASTINUM: The cardiac silhouette is not enlarged. LUNGS: No infiltrates, effusions or pneumothorax. Prominent bronchovascular markings bilaterally which may indicate bronchitis. OTHER: No free air under the diaphragm. IMPRESSION: Bilateral prominent bronchovascular markings which may indicate bronchitis. Follow-up advised. Reviewed, dictated and finalized at location A. IMPRESSION: Bilateral prominent bronchovascular markings which may indicate bronchitis. Fol low-up advised.
[2024-06-19 10:41] LABS: Influenza A QL RT-PCR Negative (Negative); Influenza B QL RT-PCR Negative (Negative); RSV RNA, RT-PCR Negative (Negative); SARS-CoV-2 RNA PCR Negative (Negative)
--- NOTE | 2024-06-19 11:37 | ED.URI ---
HPI - URI/Sore Throat General Chief Complaint: Upper Respiratory Infection Stated Complaint: COVID Time Seen by Provider: 06/19/24 10:02 History of Present Illness HPI Narrative: Patient is a 29-year-old male who presents to the ER with a 2 day history of productive cough. He reports he has no respiratory history and feels that his symptoms are similar to when he had COVID. Patient reports he has been coughing, green stuff but he thinks it has started to break up. He reports he would rather not stay her further evaluation now that he knows he does not COVID. Patient denies chest pain, shortness a breath, other signs /symptoms of illness. Related Data Allergies Allergy/AdvReac Type Severity Reaction Status Date / Time No Known Allergies Allergy Verified 06/19/24 09:50 Review of Systems Review of Systems: All systems reviewed & are unremarkable except as noted in HPI and below PMFSH Past Medical History Medical History Healthy adult male Surgical History Surgical History No pertinent past surgical history Social History Social History Substance use type: former substance user Exam Narrative: GENERAL: Well appearing, well-nourished, non-toxic, in no acute distress. HEAD: Normocephalic, atraumatic. NECK: Supple. No adenopathy, no masses. RESPIRATORY: Airway patent, respirations nonlabored. Crackles to auscultation bilateral bases, no rales, rhonchi, mild wheezing in ARMIN lobe. CARDIOVASCULAR: Regular rate and rhythm without murmurs, rubs, or gallops. Peripheral pulses 2+ and equal bilaterally. ABDOMINAL: Soft, nontender, nondistended, no hepatosplenomegaly. Normoactive BS. MUSCULOSKELETAL: Moves all extremities. Strength/ROM intact without gross deformities. SKIN: Warm, dry, normal color. No rashes. NEURO: A&O X3. Speech clear. Cranial nerves II-XII grossly intact. Steady gait. No ataxic movements. PSYCHIATRIC: Appropriate mood and affect. Normal interaction. Course Vital Signs Vital signs: Vital Signs Temperature 36.6 C 06/19/24 09:51 Pulse Rate 104 H 06/19/24 09:51 Respiratory Rate 20 06/19/24 09:51 Blood Pressure 151/88 H 06/19/24 09:51 Pulse Oximetry 100 06/19/24 09:51 Oxygen Delivery Room Air 06/19/24 09:51 Temperature 36.5 C 06/19/24 11:02 Pulse Rate 120 H 06/19/24 12:41 Respiratory Rate 20 06/19/24 12:41 Blood Pressure 146/93 H 06/19/24 11:02 Pulse Oximetry 96 06/19/24 11:42 Oxygen Delivery Room Air 06/19/24 11:42 Fraction of Inspired Oxygen 21 06/19/24 11:42 MDM - URI/Sore Throat MDM Narrative Medical decision making narrative: Will order a chest x-ray as patient has crackles noted upon auscultation. Will order a breathing treatment as patient has mild wheezing in his left upper lobe. Patient's chest x-ray indicates bronchitis. Will prescribe patient with Tessalon Perles, Medrol Dosepak, and an albuterol inhaler. Explained to pt the importance of returning to the ER with worsening symptoms. Differential Diagnosis Differential diagnosis: Likely upper respiratory infection, sinusitis, viral infection, bronchitis, influenza and pharyngitis Lab Data Attestation: I reviewed the patient's lab results. Labs: Lab Results 06/19/24 Range/Units 10:01 Influenza A (RT-PCR) Negative (Negative) Influenza B (RT-PCR) Negative (Negative) RSV (RT-PCR) Negative (Negative) SARS-CoV-2 RNA (RT-PCR) Negative (Negative) Imaging Data Attestation: I personally reviewed and interpreted this imaging study as follows: Radiologist's impression: Impressions Chest X-Ray 06/19/24 12:44 IMPRESSION: Bilateral prominent bronchovascular markings which may indicate bronchitis. Follow-up advised. Discharge Plan Discharge Clinical Impression:
[2024-06-19] MEDS: ALBUTEROL SULFATE NEB 2.5 MG/3 ML INH 10 MG INHALATION (11:42)
== END 2024-06-19 13:26 | disposition home or self-care (01) ==
PROVIDERS: Emergency Medicine; Emergency Provider Registered Nurse
DX: J06.9 Acute upper respiratory infection, unspecified (principal); J40 Bronchitis, not specified as acute or chronic; Z20.822 Contact with and (suspected) exposure to COVID-19
CPT/HCPCS: 71046; 87637; 94640; 99283

== ENCOUNTER 2024-09-12 20:32 | Emergency (ER) | payer OTHER, SELFPAY ==
[2024-09-12 20:38] VITALS: BP 172/108; PULSE 129; RESP 20; TEMP 36.6; O2SAT 97
--- NOTE | 2024-09-12 20:39 | ECG_ITS ---
Test Date: 2024-09-12 20:46:05 Measurements Intervals [place] Rate: 132 P: 69 [place]: 148 QRS: 66 QRSD: 86 T: 29 QT: 289 QTc: 429 Interpretive Statements SINUS TACHYCARDIA NONSPECIFIC ST & T-WAVE ABNORMALITY No previous ECG available for comparison Electronically Signed On 09-13-2024 14:22:49 [employer] by Denisha Laura M.D.
--- NOTE | 2024-09-12 23:22 | PC.NURSE ---
Pt called x2 w no answer.
== END 2024-09-12 23:41 | disposition left against medical advice (07) ==
PROVIDERS: Emergency Provider Emergency Medicine
DX: R42 Dizziness and giddiness (principal)
CPT/HCPCS: 93005; 99199

== ENCOUNTER 2024-09-13 05:11 | Emergency (ER) | payer OTHER, SELFPAY ==
[2024-09-13] VITALS (10 sets, daily range): BP systolic 114–174; BP diastolic 76–107; PULSE 91–142; RESP 12–22; TEMP 36.9; O2SAT 95–98
--- NOTE | 2024-09-13 07:20 | ECG_ITS ---
Test Date: 2024-09-13 07:55:09 Measurements Intervals [place] Rate: 105 P: 70 [place]: 151 QRS: 60 QRSD: 77 T: 36 QT: 326 QTc: 432 Interpretive Statements SINUS TACHYCARDIA NONSPECIFIC T WAVE ABNORMALITY Compared to ECG 09/12/2024 20:46:05 NO SIGNIFICANT CHANGES Electronically Signed On 09-13-2024 14:28:13 [employer] by Denisha Laura M.D.
[2024-09-13] MEDS: SODIUM CHLORIDE 0.9% IV 1,000 ML 999 ML IV CONT ×2 (07:42→09:51)
--- NOTE | 2024-09-13 09:24 | ED.ARRPALP ---
HPI - Arrhythmia/Palpitations General Chief Complaint: Arrhythmia/Palpitations Stated Complaint: ANXIOUS, HEART RACING Time Seen by Provider: 09/13/24 07:05 History of Present Illness HPI narrative: Patient is a 29-year-old male who presents ER with sensation of racing heart. Patient reports he has been binge drinking hard liquor over last few days. When he wakes up he feels his heart racing. No vomiting. No fevers chills or sweats. No history of withdrawal or seizure. Reports he uses alcohol to treat his anxiety. Denies specific stressors. No syncope. Related Data Allergies Allergy/AdvReac Type Severity Reaction Status Date / Time No Known Allergies Allergy Verified 09/12/24 20:34 Review of Systems Review of Systems: All systems reviewed & are unremarkable except as noted in HPI and below Constitutional: Constitutional: Reports no additional constitutional complaints ENT: Reports system reviewed and no additional complaints, except as documented Cardiovascular: Cardiovascular: Reports no additional cardiovascular complaints Respiratory: Respiratory: Reports no additional respiratory complaints PMFSH Past Medical History Medical History Healthy adult male Surgical History Surgical History No pertinent past surgical history Social History Social History Substance use type: former substance user Exam Narrative: GENERAL: Well-appearing, well-nourished, and in no acute distress. HEAD: Normocephalic, atraumatic. ENT: Mucous membranes moist. CHEST: Clear to auscultation. No respiratory distress. HEART: Tachycardic and regular. Normal peripheral pulses. ABDOMEN: Soft, nontender, nondistended. EXTREMITIES: Normal range of motion. No edema. SKIN: Warm, dry, no rash. NEURO: Alert and oriented x3. PSYCH: Normal mood and affect. Course Course Emergency Course: Patient had positive orthostatic vital signs where he was dropping his blood pressure. After 2 L IV fluid he has improved though he does get some mild tachycardia. Appropriate for discharge home. Recommend alcohol cessation. Will give hydroxyzine for anxiety. Vital Signs Vital signs: Vital Signs Temperature 98.5 F 09/13/24 05:11 Pulse Rate 132 H 09/13/24 05:11 Respiratory Rate 22 H 09/13/24 05:11 Blood Pressure 164/107 H 09/13/24 05:11 Pulse Oximetry 95 09/13/24 05:11 Oxygen Delivery Room Air 09/13/24 05:11 Temperature 98.5 F 09/13/24 05:11 Pulse Rate 105 H 09/13/24 10:53 Respiratory Rate 16 09/13/24 10:53 Blood Pressure 163/100 H 09/13/24 10:53 Pulse Oximetry 98 09/13/24 10:53 Oxygen Delivery Room Air 09/13/24 05:11 MDM - Arrhythmia/Palpitations Lab Data 09/13/24 07:30 09/13/24 10:20 Labs: Lab Results 09/13/24 09/13/24 Range/Units 07:30 10:20 WBC 13.8 H (4.5-10.0) K/mm3 RBC 5.26 (4.6-6.20) M/mm3 Hgb 17.2 (14.0-18.0) g/dL Hct 47.3 (42.0-52.0) % MCV 89.9 (80-100) fl MCH 32.7 (26-34) pg MCHC 36.4 H (32-36) g/dl RDW 13.4 (11.5-14.5) % Plt Count 264 (150-375) k/mm3 MPV 9.7 (7.4-10.4) fl Immature Gran % (Auto) 0.2 (0-0.5) % Neut % (Auto) 63.2 (45.5-73.1) % Lymph % (Auto) 26.9 (18.3-44.2) % [place] % (Auto) 9.1 H (2.6-8.5) % Eos % (Auto) 0.2 (0-4.4) % Baso % (Auto) 0.4 (0.2-1.2) % Lymph # (Auto) 3.72 H (0.9-3.2) K/mm3 [place] # (Auto) 1.3 H (0.1-0.6) K/mm3 Eos # (Auto) 0.0 (0-0.3) K/mm3 Baso # (Auto) 0.1 (0.0-0.1) K/mm3 Abs Immat Gran (auto) 0.03 (0.00-0.031) K/mm3 Absolute Neuts (auto) 8.7 H (1.3-6.7) K/mm3 Absolute Nucleated RBC 0.000 (0.0-0.012) K/mm3 Nucleated RBC % 0.0 (0.0-0.2) % Sodium 136 L (137-145) mmol/L Potassium 3.7 (3.4-5.0) mmol/L Chloride 103 (98-107) mmol/L Carbon Dioxide 20 L (22-30) mmol/L Anion Gap 13 H (4-12) mmol/L BUN 7 L (9-20) mg/dL Creatinine 0.81 (0.7-1.3) mg/dL Estim Creat Clear Calc 151 ml/min Estimated GFR > 60 (59 - ) Glucose 88 (65-110) mg/dL Calcium 7.9 L (8.4-10.2) mg/dL Total Bilirubin 1.4 H (0.2-1.3) mg/dL AST 43 (17-59) U/L ALT 72 H (6-50) U/L Alkaline Phosphatase 90 (38-126) U/L Total Protein 7.0 (6.3-8.2) g/dL Albumin 4.2 (3.5-5.1) g/dL Lipase 55 (23-300) U/L ECG Data EKG #1: ECG completion date: 09/13/24 ECG completion time: 07:55 EKG Interpretation: tachycardia (105), sinus rhythm, no ST changes, normal QRS, normal QT and NL axis Discharge Plan Discharge Clinical Impression: Anxiety, Dehydration Patient Disposition: Home, Self-Care Condition: Stable Instructions: Dehydration (ED), Anxiety (ED) Additional Instructions: Return ER if you lose consciousness, he developed chest pain with shortness of breath, you lose consciousness, or you have additional concerns. Recommend following up with your primary care doctor for further treatment and evaluation. Patient Language: [place] Prescriptions: New hydroxyzine pamoate 25 mg capsule 25 mg PO TID PRN (Reason: anxiety) Qty: 20 0RF No Action oseltamivir [Tamiflu] 75 mg capsule 75 mg PO Q12H 5 Days Qty: 10 0RF hydroxyzine HCl 25 mg tablet 25 mg PO TID PRN (Reason: anxiety) Qty: 30 0RF benzonatate 100 mg capsule 100 mg PO TID PRN (Reason: cough) Qty: 14 0RF methylprednisolone [Medrol (Epi)] 4 mg tablets,dose pack See Rx Instructions .ROUTE .COMPLEX Qty: 21 0RF Rx Instructions: for 6 days albuterol sulfate 90 mcg/actuation HFA aerosol inhaler 2 puff inhalation QID PRN (Reason: shortness of breath or wheezing) Qty: 8.5 0RF Follow-up/Referrals: Maury Kenny MD [Physician] - 1 Week UNKNOWN,DOCTOR [Primary Care Provider] -
[2024-09-13 09:49] LABS: Basophils Absolute Auto 0.1 K/mm3 (0.0-0.1); Basophils Percent Auto 0.4 % (0.2-1.2); Eosinophils Percent Auto 0.2 % (0-4.4); Hematocrit 47.3 % (42.0-52.0); Hemoglobin 17.2 g/dL (14.0-18.0); Immature Granulocyte Absolute 0.03 K/mm3 (0.00-0.031); Immature Granulocyte Percent A 0.2 % (0-0.5); Lymphocytes Absolute Auto 3.72 K/mm3 (0.9-3.2); Lymphocytes Percent Auto 26.9 % (18.3-44.2); Mean Corpuscular HGB Conc 36.4 g/dl (32-36); Mean Corpuscular Hemoglobin 32.7 pg (26-34); Mean Corpuscular Volume 89.9 fl (80-100); Mean Platelet Volume 9.7 fl (7.4-10.4); Monocytes Absolute Auto 1.3 K/mm3 (0.1-0.6); Monocytes Percent Auto 9.1 % (2.6-8.5); Neutrophils Absolute Auto 8.7 K/mm3 (1.3-6.7); Neutrophils Percent Auto 63.2 % (45.5-73.1); Platelet Count Result 264 k/mm3 (150-375); Red Blood Count 5.26 M/mm3 (4.6-6.20); Red Cell Distribution Width 13.4 % (11.5-14.5); White Blood Count 13.8 K/mm3 (4.5-10.0)
[2024-09-13 10:50] LABS: Alanine Aminotransferase 72 U/L (6-50); Albumin Level 4.2 g/dL (3.5-5.1); Alkaline Phosphatase 90 U/L (38-126); Anion Gap 13 mmol/L (4-12); Aspartate Amino Transferase 43 U/L (17-59); Bilirubin,Total 1.4 mg/dL (0.2-1.3); Blood Urea Nitrogen 7 mg/dL (9-20); Calcium 7.9 mg/dL (8.4-10.2); Carbon Dioxide 20 mmol/L (22-30); Chloride 103 mmol/L (98-107); Estimated CRCL calculation 151 ml/min; Estimated Glomerular Filt Rate > 60; Glucose 88 mg/dL (65-110); Lipase 55 U/L (23-300); Potassium 3.7 mmol/L (3.4-5.0); Sodium 136 mmol/L (137-145)
== END 2024-09-13 12:32 | disposition home or self-care (01) ==
PROVIDERS: Emergency Provider Emergency Medicine
DX: F41.9 Anxiety disorder, unspecified (principal); E86.0 Dehydration; F10.90 Alcohol use, unspecified, uncomplicated
CPT/HCPCS: 36415; 80053; 83690; 85025; 93005; 96360; 96361; 99284; J7030

== ENCOUNTER 2024-11-19 04:45 | Emergency (ER) | payer SELFPAY ==
[2024-11-19] VITALS (9 sets, daily range): BP systolic 115–192; BP diastolic 84–116; PULSE 112–127; RESP 15–22; TEMP 36.1; O2SAT 94–98
--- NOTE | ~2024-11-19 | XR_ITS ---
CHEST RADIOGRAPH CLINICAL HISTORY: CHEST PAIN . COMPARISON: 09/16/2024 TECHNIQUE: Single portable view of the chest. FINDINGS The cardiomediastinal silhouette is unremarkable. The lungs are clear. Visualized osseous structures and soft tissues are unremarkable. IMPRESSION: No focal infiltrate or effusion. Reviewed, dictated and finalized at location A.
--- NOTE | 2024-11-19 04:46 | ECG_ITS ---
Test Date: 2024-11-19 04:52:14 Measurements Intervals [place] Rate: 124 P: 55 [place]: 156 QRS: 40 QRSD: 82 T: 10 QT: 283 QTc: 407 Interpretive Statements SINUS TACHYCARDIA NONSPECIFIC T-WAVE ABNORMALITY Compared to ECG 09/13/2024 07:55:09 No significant changes Electronically Signed On 11-19-2024 13:33:10 CDT by Denisha Laura M.D.
--- NOTE | 2024-11-19 05:00 | PC.NURSE ---
Pt reports he drinks every day with his last drink being 30 minutes ago. Pt states he drank about a handle of 99 banana in the last 24 hours, states he has been seen here many times for the same complaint of palpitations.
[2024-11-19 05:03] LABS: Basophils Percent Auto 0.3 % (0.2-1.2); Eosinophils Percent Auto 0.1 % (0-4.4); Hematocrit 50.7 % (42.0-52.0); Hemoglobin 18.2 g/dL (14.0-18.0); Immature Granulocyte Absolute 0.02 K/mm3 (0.00-0.031); Immature Granulocyte Percent A 0.2 % (0-0.5); Lymphocytes Absolute Auto 4.17 K/mm3 (0.9-3.2); Mean Corpuscular HGB Conc 35.9 g/dl (32-36); Mean Corpuscular Hemoglobin 31.3 pg (26-34); Mean Corpuscular Volume 87.1 fl (80-100); Mean Platelet Volume 8.6 fl (7.4-10.4); Monocytes Absolute Auto 0.8 K/mm3 (0.1-0.6); Monocytes Percent Auto 7.2 % (2.6-8.5); Neutrophils Absolute Auto 6.2 K/mm3 (1.3-6.7); Neutrophils Percent Auto 55.2 % (45.5-73.1); Platelet Count Result 315 k/mm3 (150-375); Red Blood Count 5.82 M/mm3 (4.6-6.20); Red Cell Distribution Width 12.4 % (11.5-14.5); White Blood Count 11.3 K/mm3 (4.5-10.0)
[2024-11-19 05:15] LABS: Magnesium 2.2 mg/dL (1.6-2.3)
[2024-11-19 05:16] LABS: Alanine Aminotransferase 192 U/L (6-50); Albumin Level 5.2 g/dL (3.5-5.1); Alkaline Phosphatase 130 U/L (38-126); Anion Gap 22 mmol/L (4-12); Aspartate Amino Transferase 171 U/L (17-59); Bilirubin,Total 1.4 mg/dL (0.2-1.3); Blood Urea Nitrogen 8 mg/dL (9-20); Calcium 8.8 mg/dL (8.4-10.2); Carbon Dioxide 21 mmol/L (22-30); Chloride 98 mmol/L (98-107); Estimated CRCL calculation 109 ml/min; Estimated Glomerular Filt Rate > 60; Glucose 170 mg/dL (65-110); Lipase 73 U/L (23-300); Potassium 3.5 mmol/L (3.4-5.0); Sodium 141 mmol/L (137-145)
--- NOTE | 2024-11-19 05:16 | ED_ITS ---
HPI - General Adult General Chief complaint: Chest Pain Stated complaint: heart rate fast Time Seen by Provider: 11/19/24 04:57 History of Present Illness HPI narrative: Patient [id number] gentleman presents emergency department with chief complaint of palpitations. The patient reports that he drinks about a handle day of alcohol and reports that he does was not feeling too well today patient reports that he knows his heart rate was beating fast he also reports he has felt somewhat anxious Related Data Allergies Allergy/AdvReac Type Severity Reaction Status Date / Time No Known Allergies Allergy Verified 09/12/24 20:34 Review of Systems 2 Review of Systems: A 10 system review of systems was completed on the patient and is negative except for what is stated in the HPI. Nursing and ancillary documentation was reviewed. [facility] Past Medical History Medical History Healthy adult male Surgical History Surgical History No pertinent past surgical history Social History Social History Substance use type: former substance user Exam 2 Narrative: GENERAL: Well-appearing, well-nourished, and in no acute distress. HEAD: Normocephalic, atraumatic. EYES: PERRLA and EOMI. ENT: Nares clear, no rhinorrhea or epistaxis. Mucous membranes moist. NECK: Supple. CHEST: Clear to auscultation. No respiratory distress. HEART: Regular rate and rhythm. No murmur heard. Normal peripheral pulses. ABDOMEN: Soft, nontender, nondistended, normal active bowel sounds. EXTREMITIES: Normal range of motion. No edema. SKIN: Warm, dry, no rash. NEURO: No focal deficits. Alert and oriented x3. PSYCH: Normal mood and affect. Course Vital Signs Vital signs: Vital Signs Pulse Oximetry 98 11/19/24 04:49 Oxygen Delivery Room Air 11/19/24 04:49 Temperature 36.1 C L 11/19/24 04:51 Pulse Rate 118 H 11/19/24 09:50 Respiratory Rate 16 11/19/24 09:50 Blood Pressure 163/101 H 11/19/24 08:58 Pulse Oximetry 97 11/19/24 09:50 Oxygen Delivery Room Air 11/19/24 04:51 Medical Decision Making Vital Signs Vital Signs: Vital Signs Pulse Oximetry 98 11/19/24 04:49 Oxygen Delivery Room Air 11/19/24 04:49 Temperature 36.1 C L 11/19/24 04:51 Pulse Rate 118 H 11/19/24 09:50 Respiratory Rate 16 11/19/24 09:50 Blood Pressure 163/101 H 11/19/24 08:58 Pulse Oximetry 97 11/19/24 09:50 Oxygen Delivery Room Air 11/19/24 04:51 Lab Data 11/19/24 04:55 11/19/24 04:55 Labs: Lab Results 11/19/24 11/19/24 11/19/24 Range/Units 04:55 05:44 07:42 WBC 11.3 H (4.5-10.0) K/mm3 RBC 5.82 (4.6-6.20) M/mm3 Hgb 18.2 H D (14.0-18.0) g/dL Hct 50.7 (42.0-52.0) % MCV 87.1 (80-100) fl MCH 31.3 (26-34) pg MCHC 35.9 (32-36) g/dl RDW 12.4 (11.5-14.5) % Plt Count 315 D (150-375) k/mm3 MPV 8.6 (7.4-10.4) fl Immature Gran % (Auto) 0.2 (0-0.5) % Neut % (Auto) 55.2 (45.5-73.1) % Lymph % (Auto) 37.0 (18.3-44.2) % [place] % (Auto) 7.2 (2.6-8.5) % Eos % (Auto) 0.1 (0-4.4) % Baso % (Auto) 0.3 (0.2-1.2) % Lymph # (Auto) 4.17 H (0.9-3.2) K/mm3 [place] # (Auto) 0.8 H (0.1-0.6) K/mm3 Eos # (Auto) 0.0 (0-0.3) K/mm3 Baso # (Auto) 0.0 (0.0-0.1) K/mm3 Abs Immat Gran (auto) 0.02 (0.00-0.031) K/mm3 Absolute Neuts (auto) 6.2 (1.3-6.7) K/mm3 Absolute Nucleated RBC 0.000 (0.0-0.012) K/mm3 Nucleated RBC % 0.0 (0.0-0.2) % PT 14.4 (11.1-14.7) Seconds INR 1.1 APTT 27.5 (22.3-36.8) Seconds Sodium 141 (137-145) mmol/L Potassium 3.5 (3.4-5.0) mmol/L Chloride 98 (98-107) mmol/L Carbon Dioxide 21 L (22-30) mmol/L Anion Gap 22 H (4-12) mmol/L BUN 8 L (9-20) mg/dL Creatinine 1.15 (0.7-1.3) mg/dL Estim Creat Clear Calc 109 ml/min Estimated GFR > 60 (59 - ) Glucose 170 H (65-110) mg/dL Lactic Acid 3.5 H (0.7-2.0) mmol/L Calcium 8.8 (8.4-10.2) mg/dL Magnesium 2.2 (1.6-2.3) mg/dL Total Bilirubin 1.4 H (0.2-1.3) mg/dL AST 171 H (17-59) U/L ALT 192 H (6-50) U/L Alkaline Phosphatase 130 H (38-126) U/L Troponin I < 0.012 < 0.012 (0.000-0.034) ng/mL Total Protein 9.0 H (6.3-8.2) g/dL Albumin 5.2 H (3.5-5.1) g/dL Lipase 73 (23-300) U/L Urine Opiates Screen Negative (Negative) Urine Methadone Screen Negative (Negative) Ur Barbiturates Screen Negative (Negative) Ur Phencyclidine Scrn Negative (Negative) Ur Amphetamine Screen Negative (Negative) U Benzodiazepines Scrn Negative (Negative) Urine Cocaine Screen Negative (Negative) U Cannabinoids Screen Negative (Negative) Ethyl Alcohol 296 (<10) mg/dL 11/19/24 Range/Units 08:00 WBC (4.5-10.0) K/mm3 RBC (4.6-6.20) M/mm3 Hgb (14.0-18.0) g/dL Hct (42.0-52.0) % MCV (80-100) fl MCH (26-34) pg MCHC (32-36) g/dl RDW (11.5-14.5) % Plt Count (150-375) k/mm3 MPV (7.4-10.4) fl Immature Gran % (Auto) (0-0.5) % Neut % (Auto) (45.5-73.1) % Lymph % (Auto) (18.3-44.2) % Josephine % (Auto) (2.6-8.5) % Eos % (Auto) (0-4.4) % Baso % (Auto) (0.2-1.2) % Lymph # (Auto) (0.9-3.2) K/mm3 [place] # (Auto) (0.1-0.6) K/mm3 Eos # (Auto) (0-0.3) K/mm3 Baso # (Auto) (0.0-0.1) K/mm3 Abs Immat Gran (auto) (0.00-0.031) K/mm3 Absolute Neuts (auto) (1.3-6.7) K/mm3 Absolute Nucleated RBC (0.0-0.012) K/mm3 Nucleated RBC % (0.0-0.2) % PT (11.1-14.7) Seconds INR APTT (22.3-36.8) Seconds Sodium (137-145) mmol/L Potassium (3.4-5.0) mmol/L Chloride (98-107) mmol/L Carbon Dioxide (22-30) mmol/L Anion Gap (4-12) mmol/L BUN (9-20) mg/dL Creatinine (0.7-1.3) mg/dL Estim Creat Clear Calc ml/min Estimated GFR (59 - ) Glucose (65-110) mg/dL Lactic Acid 2.8 H (0.7-2.0) mmol/L Calcium (8.4-10.2) mg/dL Magnesium (1.6-2.3) mg/dL Total Bilirubin (0.2-1.3) mg/dL AST (17-59) U/L ALT (6-50) U/L Alkaline Phosphatase (38-126) U/L Troponin I (0.000-0.034) ng/mL Total Protein (6.3-8.2) g/dL Albumin (3.5-5.1) g/dL Lipase (23-300) U/L Urine Opiates Screen (Negative) Urine Methadone Screen (Negative) Ur Barbiturates Screen (Negative) Ur Phencyclidine Scrn (Negative) Ur Amphetamine Screen (Negative) U Benzodiazepines Scrn (Negative) Urine Cocaine Screen (Negative) U Cannabinoids Screen (Negative) Ethyl Alcohol (<10) mg/dL Discharge Plan Discharge Patient Language: [place] Prescriptions: No Action oseltamivir [Tamiflu] 75 mg capsule 75 mg PO Q12H 5 Days Qty: 10 0RF hydroxyzine pamoate 25 mg capsule 25 mg PO TID PRN (Reason: anxiety) Qty: 20 0RF hydroxyzine HCl 25 mg tablet 25 mg PO TID PRN (Reason: anxiety) Qty: 30 0RF benzonatate 100 mg capsule 100 mg PO TID PRN (Reason: cough) Qty: 14 0RF methylprednisolone [Medrol (Epi)] 4 mg tablets,dose pack See Rx Instructions .ROUTE .COMPLEX Qty: 21 0RF Rx Instructions: for 6 days albuterol sulfate 90 mcg/actuation HFA aerosol inhaler 2 puff inhalation QID PRN (Reason: shortness of breath or wheezing) Qty: 8.5 0RF benzonatate 100 mg capsule 100 mg PO TID PRN (Reason: cough) Qty: 14 0RF albuterol sulfate 90 mcg/actuation HFA aerosol inhaler 1 puff inhalation QID Qty: 6.7 0RF Follow-up/Referrals: PHYSICIAN,EVENT ORGANIZER [Primary Care Provider] -
[2024-11-19 05:17] LABS: Ethanol 296 mg/dL (<10)
[2024-11-19 05:22] LABS: INR 1.1; Partial Thromboplastin Time 27.5 Seconds (22.3-36.8); Prothrombin Time 14.4 Seconds (11.1-14.7)
[2024-11-19 05:28] LABS: Troponin I < 0.012 ng/mL (0.000-0.034)
[2024-11-19] MEDS: THIAMINE 500 MG/NS 100 ML 500 MG/100 ML BAG 200 MG IVPB (05:40)
[2024-11-19] MEDS: SODIUM CHLORIDE 0.9% IV 1,000 ML 999 ML IV CONT ×2 (05:40→05:41)
[2024-11-19 06:04] LABS: Lactic Acid Reflex 3.5 mmol/L (0.7-2.0)
[2024-11-19 06:17] LABS: Amphetamine Screen Urine Negative (Negative); Barbiturate Screen Urine Negative (Negative); Benzodiazepines Screen Urine Negative (Negative); Cannabinoid Screen Urine Negative (Negative); Cocaine Screen Urine Negative (Negative); Methadone Screen Urine Negative (Negative); Opiate Screen Urine Negative (Negative); Phencyclidine Screen Urine Negative (Negative)
[2024-11-19] MEDS: LORazepam INJ (*CRX) 2 MG/ML VIAL 1 MG IV PUSH ×2 (06:44→10:32)
--- NOTE | 2024-11-19 07:12 | PC.NURSE ---
Fluids still infusing. Pt. educated to keep his arm straight.
[2024-11-19 07:49] LABS: Reflex Lactic Acid Yes or No Add Lactic
[2024-11-19 08:14] LABS: Troponin I < 0.012 ng/mL (0.000-0.034)
[2024-11-19 08:15] LABS: Lactic Acid 2.8 mmol/L (0.7-2.0)
--- NOTE | 2024-11-19 11:00 | PC.NURSE ---
Pt. states that he would like to leave. Pt. not willing to wait for Dr. Shell to speak with him about risks of leaving. Pt. states he will not drive and has somebody to pick him up. Pt. is A&Ox4 with a steady gait. Dr. Shell aware of pt. elopement. IV removed prior to pt. leaving.
== END 2024-11-19 11:15 | disposition left against medical advice (07) ==
PROVIDERS: Emergency Medicine; Emergency Provider Emergency Medicine
DX: R00.2 Palpitations (principal); F10.120 Alcohol abuse with intoxication, uncomplicated; Y90.8 Blood alcohol level of 240 mg/100 ml or more; R00.0 Tachycardia, unspecified; R94.31 Abnormal electrocardiogram [ECG] [EKG]
CPT/HCPCS: 36415; 71045; 80053; 80307; 82077; 83605; 83690; 83735; 84484; 85025; 85610; 85730; 93005; 96361; 96365; 96375; 96376; 99284; J2060; J3411; J7030

== ENCOUNTER 2024-11-20 19:44 | Emergency (ER) | payer OTHER, SELFPAY ==
--- NOTE | ~2024-11-20 | XR_ITS ---
EXAMINATION: XR chest 2V Exam Date/Time: 11/20/2024 19:55 CDT HISTORY: palpitations Comparison: 11/19/2024. RESULT: Lines, tubes, and devices: None. Lungs and pleura: Clear. Cardiomediastinal silhouette: Stable. Other: No acute osseous or upper abdominal finding. IMPRESSION: No acute cardiopulmonary process. Reviewed, dictated and finalized at location [facility].
[2024-11-20 19:46] VITALS: BP 153/101; PULSE 140; RESP 18; TEMP 36.4; O2SAT 96
--- NOTE | 2024-11-20 19:47 | ECG_ITS ---
Test Date: 2024-11-20 19:50:47 Measurements Intervals [place] Rate: 136 P: 52 [place]: 156 QRS: 40 QRSD: 74 T: 38 QT: 330 QTc: 498 Interpretive Statements SINUS TACHYCARDIA NONSPECIFIC T-WAVE ABNORMALITY ABNORMAL RHYTHM ECG Compared to ECG 11/19/2024 04:52:14 No significant changes Electronically Signed On 11-21-2024 16:00:55 CDT by Denisha Laura M.D.
[2024-11-20 20:33] LABS: Alanine Aminotransferase 159 U/L (6-50); Albumin Level 5.1 g/dL (3.5-5.1); Alkaline Phosphatase 112 U/L (38-126); Anion Gap 22 mmol/L (4-12); Aspartate Amino Transferase 117 U/L (17-59); Blood Urea Nitrogen 9 mg/dL (9-20); Calcium 8.8 mg/dL (8.4-10.2); Carbon Dioxide 19 mmol/L (22-30); Chloride 99 mmol/L (98-107); Estimated CRCL calculation 108 ml/min; Estimated Glomerular Filt Rate > 60; Glucose 134 mg/dL (65-110); Lipase 77 U/L (23-300); Potassium 3.9 mmol/L (3.4-5.0); Sodium 140 mmol/L (137-145)
[2024-11-20 20:45] LABS: Troponin I < 0.012 ng/mL (0.000-0.034)
[2024-11-20] MEDS: SODIUM CHLORIDE 0.9% IV 1,000 ML 999 ML IV CONT (21:40)
[2024-11-20 21:43] VITALS: BP 149/95; PULSE 126; RESP 14; O2SAT 95
[2024-11-20 21:43] LABS: Basophils Percent Auto 0.3 % (0.2-1.2); Hematocrit 48.6 % (42.0-52.0); Hemoglobin 17.5 g/dL (14.0-18.0); Immature Granulocyte Absolute 0.02 K/mm3 (0.00-0.031); Immature Granulocyte Percent A 0.3 % (0-0.5); Lymphocytes Absolute Auto 2.41 K/mm3 (0.9-3.2); Lymphocytes Percent Auto 30.5 % (18.3-44.2); Mean Corpuscular Hemoglobin 31.5 pg (26-34); Mean Corpuscular Volume 87.4 fl (80-100); Mean Platelet Volume 8.4 fl (7.4-10.4); Monocytes Absolute Auto 0.5 K/mm3 (0.1-0.6); Monocytes Percent Auto 6.7 % (2.6-8.5); Neutrophils Absolute Auto 4.9 K/mm3 (1.3-6.7); Neutrophils Percent Auto 62.2 % (45.5-73.1); Platelet Count Result 223 k/mm3 (150-375); Red Blood Count 5.56 M/mm3 (4.6-6.20); Red Cell Distribution Width 12.3 % (11.5-14.5); White Blood Count 7.9 K/mm3 (4.5-10.0)
[2024-11-20 21:44] VITALS: O2SAT 96
[2024-11-20 21:45] VITALS: PULSE 120
[2024-11-20 21:53] LABS: INR 1.1; Prothrombin Time 14.2 Seconds (11.1-14.7)
[2024-11-20 21:54] LABS: Partial Thromboplastin Time 27.5 Seconds (22.3-36.8)
--- NOTE | 2024-11-20 22:58 | ED_ITS ---
HPI - General Adult General Chief complaint: Chest Pain Stated complaint: heart is beating really fast Time Seen by Provider: 11/20/24 21:22 History of Present Illness HPI narrative: Patient is a 29-year-old male who presents ER with feeling like his heart rate is elevated. Reports over last 6 days he has not been eating he has only been drinking alcohol. Reports when he starts to feel bad he feels like he needs alcohol again. Denies vomiting or diarrhea. No chest pain. Unsure if he is having acid reflux. Related Data Allergies Allergy/AdvReac Type Severity Reaction Status Date / Time No Known Allergies Allergy Verified 09/12/24 20:34 Review of Systems 2 Review of Systems: All systems reviewed & are unremarkable except as noted in HPI and below Constitutional: Constitutional: Reports no additional constitutional complaints ENT: Reports system reviewed and no additional complaints, except as documented Cardiovascular: Cardiovascular: Reports no additional cardiovascular complaints Respiratory: Respiratory: Reports no additional respiratory complaints Musculoskeletal: Musculoskeletal: Reports no additional musculoskeletal complaints PMFSH Past Medical History Medical History Healthy adult male Surgical History Surgical History No pertinent past surgical history Social History Social History Substance use type: former substance user Exam 2 Narrative: GENERAL: Well-appearing, well-nourished, and in no acute distress. HEAD: Normocephalic, atraumatic ENT: Mucous membranes moist. CHEST: Clear to auscultation. No respiratory distress. HEART: Tachycardic and regular. Normal peripheral pulses. ABDOMEN: Soft, nontender, nondistended. EXTREMITIES: Normal range of motion. No edema. SKIN: Warm, dry, no rash. NEURO: Alert and oriented x3. PSYCH: Normal mood and affect. Course Course Emergency Course: Patient hydrated feels much better and is wanting to leave. Discharge. Vital Signs Vital signs: Vital Signs Temperature 97.6 F 11/20/24 19:46 Pulse Rate 140 H 11/20/24 19:46 Respiratory Rate 18 11/20/24 19:46 Blood Pressure 153/101 H 11/20/24 19:46 Pulse Oximetry 96 11/20/24 19:46 Oxygen Delivery Room Air 11/20/24 19:46 Temperature 97.6 F 11/20/24 19:46 Pulse Rate 120 H 11/20/24 21:45 Respiratory Rate 14 11/20/24 21:43 Blood Pressure 149/95 H 11/20/24 21:43 Pulse Oximetry 96 11/20/24 21:44 Oxygen Delivery Room Air 11/20/24 21:44 Medical Decision Making Vital Signs Vital Signs: Vital Signs Temperature 97.6 F 11/20/24 19:46 Pulse Rate 140 H 11/20/24 19:46 Respiratory Rate 18 11/20/24 19:46 Blood Pressure 153/101 H 11/20/24 19:46 Pulse Oximetry 96 11/20/24 19:46 Oxygen Delivery Room Air 11/20/24 19:46 Temperature 97.6 F 11/20/24 19:46 Pulse Rate 120 H 11/20/24 21:45 Respiratory Rate 14 11/20/24 21:43 Blood Pressure 149/95 H 11/20/24 21:43 Pulse Oximetry 96 11/20/24 21:44 Oxygen Delivery Room Air 11/20/24 21:44 Lab Data 11/20/24 21:36 11/20/24 20:15 Labs: Lab Results 11/20/24 11/20/24 Range/Units 20:15 21:36 WBC 7.9 (4.5-10.0) K/mm3 RBC 5.56 (4.6-6.20) M/mm3 Hgb 17.5 (14.0-18.0) g/dL Hct 48.6 (42.0-52.0) % MCV 87.4 (80-100) fl MCH 31.5 (26-34) pg MCHC 36.0 (32-36) g/dl RDW 12.3 (11.5-14.5) % Plt Count 223 (150-375) k/mm3 MPV 8.4 (7.4-10.4) fl Immature Gran % (Auto) 0.3 (0-0.5) % Neut % (Auto) 62.2 (45.5-73.1) % Lymph % (Auto) 30.5 (18.3-44.2) % [place] % (Auto) 6.7 (2.6-8.5) % Eos % (Auto) 0.0 (0-4.4) % Baso % (Auto) 0.3 (0.2-1.2) % Lymph # (Auto) 2.41 (0.9-3.2) K/mm3 [place] # (Auto) 0.5 (0.1-0.6) K/mm3 Eos # (Auto) 0.0 (0-0.3) K/mm3 Baso # (Auto) 0.0 (0.0-0.1) K/mm3 Abs Immat Gran (auto) 0.02 (0.00-0.031) K/mm3 Absolute Neuts (auto) 4.9 (1.3-6.7) K/mm3 Absolute Nucleated RBC 0.000 (0.0-0.012) K/mm3 Nucleated RBC % 0.0 (0.0-0.2) % PT 14.2 (11.1-14.7) Seconds INR 1.1 APTT 27.5 (22.3-36.8) Seconds Sodium 140 (137-145) mmol/L Potassium 3.9 (3.4-5.0) mmol/L Chloride 99 (98-107) mmol/L Carbon Dioxide 19 L (22-30) mmol/L Anion Gap 22 H (4-12) mmol/L BUN 9 (9-20) mg/dL Creatinine 1.15 (0.7-1.3) mg/dL Estim Creat Clear Calc 108 ml/min Estimated GFR > 60 (59 - ) Glucose 134 H (65-110) mg/dL Calcium 8.8 (8.4-10.2) mg/dL Total Bilirubin 1.0 (0.2-1.3) mg/dL AST 117 H (17-59) U/L ALT 159 H (6-50) U/L Alkaline Phosphatase 112 (38-126) U/L Troponin I < 0.012 (0.000-0.034) ng/mL Total Protein 9.0 H (6.3-8.2) g/dL Albumin 5.1 (3.5-5.1) g/dL Lipase 77 (23-300) U/L Imaging Data Radiologist's impression: ITS Impressions Chest X-Ray 11/20/24 20:19 IMPRESSION: No acute cardiopulmonary process. ECG Data EKG #1: ECG completion date: 11/20/24 ECG completion time: 19:50 EKG Interpretation: tachycardia (136), sinus rhythm, no ST changes, normal QRS, normal QT and NL axis Discharge Plan Discharge Clinical Impression: Dehydration, Alcohol abuse Patient Disposition: Home, Self-Care Condition: Stable Instructions: Dehydration (ED), Abuse of Alcohol (ED) Additional Instructions: Stop using alcohol is is contributing to you feeling unwell. Return ER if you have fever over 100.4? F, you have chest pain with exercise, you have additional concerns. Patient Language: Sierra Leonean Prescriptions: No Action oseltamivir [Tamiflu] 75 mg capsule 75 mg PO Q12H 5 Days Qty: 10 0RF hydroxyzine pamoate 25 mg capsule 25 mg PO TID PRN (Reason: anxiety) Qty: 20 0RF hydroxyzine HCl 25 mg tablet 25 mg PO TID PRN (Reason: anxiety) Qty: 30 0RF benzonatate 100 mg capsule 100 mg PO TID PRN (Reason: cough) Qty: 14 0RF methylprednisolone [Medrol (Epi)] 4 mg tablets,dose pack See Rx Instructions .ROUTE .COMPLEX Qty: 21 0RF Rx Instructions: for 6 days albuterol sulfate 90 mcg/actuation HFA aerosol inhaler 2 puff inhalation QID PRN (Reason: shortness of breath or wheezing) Qty: 8.5 0RF benzonatate 100 mg capsule 100 mg PO TID PRN (Reason: cough) Qty: 14 0RF albuterol sulfate 90 mcg/actuation HFA aerosol inhaler 1 puff inhalation QID Qty: 6.7 0RF Follow-up/Referrals: PHYSICIAN,T[employer] STRAIGHTENER [Primary Care Provider] - Maury Kenny MD [Physician] - 1 Week
== END 2024-11-20 23:05 | disposition home or self-care (01) ==
PROVIDERS: Emergency Medicine; Emergency Provider Emergency Medicine
DX: E86.0 Dehydration (principal); F10.10 Alcohol abuse, uncomplicated
CPT/HCPCS: 36415; 71046; 80053; 83690; 84484; 85025; 85610; 85730; 93005; 96360; 99284; J7030

== ENCOUNTER 2024-11-21 15:33 | Emergency (ER) | payer SELFPAY ==
[2024-11-21 15:43] VITALS: BP 157/86; PULSE 83; RESP 18; TEMP 36.6; O2SAT 98
[2024-11-21] MEDS: hydrOXYzine HCL 25 MG TABLET PO (17:07)
[2024-11-21] MEDS: DEXTROSE 5%/LACTATED RINGERS 1,000 ML 999 ML IV CONT (17:16)
--- NOTE | 2024-11-21 17:21 | ED_ITS ---
HPI - Anxiety General Chief Complaint: Anxiety Stated Complaint: feeling uneasy Time Seen by Provider: 11/21/24 15:49 History of Present Illness HPI narrative: 29-year-old male with a past medical history including alcohol abuse presenting to the emergency department with feelings of anxiety. He states he has been here in the ER several times these past few days which is feeling anxious and off. He endorses that this past week he has been drinking pretty heavily and that he normally does not do this. Patient denies any history of alcohol withdrawal withdrawal type symptoms such as tremors, nauseousness, diaphoresis. Presently he denies any symptoms besides feeling anxious. No chest pain, shortness a breath, abdominal pain, back pain, fever chills. No nausea or vomiting. No retching. When asked further about what brought him back to the emergency department he states his real reason for coming back is to get a prescription for Atarax as this helped his anxiety before and he feels help curb his alcohol use previously. Related Data Allergies Allergy/AdvReac Type Severity Reaction Status Date / Time No Known Allergies Allergy Verified 09/12/24 20:34 Review of Systems 2 Review of Systems: [facility] Past Medical History Medical History Healthy adult male Surgical History Surgical History No pertinent past surgical history Social History Social History Substance use type: does not use Exam 2 Narrative: GENERAL: [Well-appearing, well-nourished, and in no acute distress.] HEAD: [Normocephalic, atraumatic.] EYES: [PERRLA and EOMI.] ENT: Nares clear, no rhinorrhea or epistaxis. Mucous membranes moist. NECK: Supple. CHEST: [Clear to auscultation. No respiratory distress.] HEART: [Regular rate and rhythm]. No murmur heard. [Normal peripheral pulses.] ABDOMEN: [Soft, nondistended], [nontender], [No rigidity or guarding] EXTREMITIES: Normal range of motion. [No edema.] SKIN: Warm, dry, no rash. NEURO: [No focal deficits]. Alert and oriented [x3.] PSYCH: [Normal mood and affect.] Course Vital Signs Vital signs: Vital Signs Temperature 36.6 C 11/21/24 15:43 Pulse Rate 83 11/21/24 15:43 Respiratory Rate 18 11/21/24 15:43 Blood Pressure 157/86 H 11/21/24 15:43 Pulse Oximetry 98 11/21/24 15:43 Oxygen Delivery Room Air 11/21/24 15:43 Temperature 36.6 C 11/21/24 15:43 Pulse Rate 83 11/21/24 15:43 Respiratory Rate 18 11/21/24 15:43 Blood Pressure 157/86 H 11/21/24 15:43 Pulse Oximetry 98 11/21/24 15:43 Oxygen Delivery Room Air 11/21/24 15:43 MDM - Anxiety MDM Narrative Medical decision making narrative: 29-year-old male with history of alcohol abuse presents the emergency department with chief complaint of feeling anxious. He states he has been drinking heavily this past week but has never had any, withdrawal withdrawal symptoms prior. He is clinically sober at this time and last drink was last night. He states he feels anxious but denies any other symptoms. He requests to be started on Atarax as he has had this medication before to help his anxiety and alcohol use. Does not want Librium or any other treatments for alcohol abuse. He is hemodynamically stable, no signs of tremulousness, during, tachycardia, significant hypertension, fever, hypoxia. Basic laboratories were ordered and he was provided fluid bolus, D5 LR, hydroxyzine p.o. Workup shows no leukocytosis or anemia. Electrolytes within normal limits, no acidosis. Normal glucose. LFTs elevated but similar to his prior levels likely from his alcohol abuse. Patient is safe for discharge at this time, given prescription for Atarax and alcohol abuse resources. Medical Records Attestation: I reviewed the patient's medical records. Lab Data Attestation: I reviewed the patient's lab results. 11/21/24 17:18 11/21/24 17:18 Labs: Lab Results 11/21/24 Range/Units 17:18 WBC Pending RBC Pending Hgb Pending Hct Pending MCV Pending MCH Pending MCHC Pending RDW Pending Plt Count Pending MPV Pending Immature Gran % (Auto) Pending Neut % (Auto) Pending Lymph % (Auto) Pending [place] % (Auto) Pending Eos % (Auto) Pending Baso % (Auto) Pending Lymph # (Auto) Pending [place] # (Auto) Pending Eos # (Auto) Pending Baso # (Auto) Pending Abs Immat Gran (auto) Pending Absolute Neuts (auto) Pending Absolute Nucleated RBC Pending Nucleated RBC % Pending Sodium Pending Potassium Pending Chloride Pending Carbon Dioxide Pending Anion Gap Pending BUN Pending Creatinine Pending Estim Creat Clear Calc Pending Estimated GFR Pending Glucose Pending Calcium Pending Total Bilirubin Pending AST Pending ALT Pending Alkaline Phosphatase Pending Total Protein Pending Albumin Pending Discharge Plan Discharge Clinical Impression: Acute anxiety, Alcohol abuse Patient Disposition: Home, Self-Care Condition: Stable Instructions: Antibiotic Form, Anxiety (ED) Additional Instructions: We will send you home with Atarax at your request. We have provided resources for alcohol abuse. If you start feeling any clinical withdrawal symptoms or any other concerns please return to the emergency department otherwise follow-up with regular doctor. Patient Language: Persian Prescriptions: New hydroxyzine pamoate [Vistaril] 25 mg capsule 25 mg PO TID PRN (Reason: anxiety) Qty: 30 0RF No Action oseltamivir [Tamiflu] 75 mg capsule 75 mg PO Q12H 5 Days Qty: 10 0RF hydroxyzine pamoate 25 mg capsule 25 mg PO TID PRN (Reason: anxiety) Qty: 20 0RF hydroxyzine HCl 25 mg tablet 25 mg PO TID PRN (Reason: anxiety) Qty: 30 0RF benzonatate 100 mg capsule 100 mg PO TID PRN (Reason: cough) Qty: 14 0RF methylprednisolone [Medrol (Epi)] 4 mg tablets,dose pack See Rx Instructions .ROUTE .COMPLEX Qty: 21 0RF Rx Instructions: for 6 days albuterol sulfate 90 mcg/actuation HFA aerosol inhaler 2 puff inhalation QID PRN (Reason: shortness of breath or wheezing) Qty: 8.5 0RF benzonatate 100 mg capsule 100 mg PO TID PRN (Reason: cough) Qty: 14 0RF albuterol sulfate 90 mcg/actuation HFA aerosol inhaler 1 puff inhalation QID Qty: 6.7 0RF Follow-up/Referrals: PHYSICIAN,CLOTH PAINTER [Primary Care Provider] - Time of Disposition: 18:30
[2024-11-21 17:22] LABS: Basophils Percent Auto 0.3 % (0.2-1.2); Eosinophils Percent Auto 0.3 % (0-4.4); Hematocrit 46.6 % (42.0-52.0); Immature Granulocyte Absolute 0.01 K/mm3 (0.00-0.031); Immature Granulocyte Percent A 0.1 % (0-0.5); Lymphocytes Absolute Auto 1.76 K/mm3 (0.9-3.2); Mean Corpuscular HGB Conc 36.5 g/dl (32-36); Mean Corpuscular Hemoglobin 31.7 pg (26-34); Mean Corpuscular Volume 86.9 fl (80-100); Mean Platelet Volume 8.5 fl (7.4-10.4); Monocytes Absolute Auto 0.5 K/mm3 (0.1-0.6); Monocytes Percent Auto 6.4 % (2.6-8.5); Neutrophils Absolute Auto 5.4 K/mm3 (1.3-6.7); Neutrophils Percent Auto 69.9 % (45.5-73.1); Platelet Count Result 187 k/mm3 (150-375); Red Blood Count 5.36 M/mm3 (4.6-6.20); Red Cell Distribution Width 12.4 % (11.5-14.5); White Blood Count 7.7 K/mm3 (4.5-10.0)
[2024-11-21 17:32] LABS: Alanine Aminotransferase 151 U/L (6-50); Albumin Level 4.8 g/dL (3.5-5.1); Alkaline Phosphatase 120 U/L (38-126); Anion Gap 15 mmol/L (4-12); Aspartate Amino Transferase 108 U/L (17-59); Bilirubin,Total 1.7 mg/dL (0.2-1.3); Blood Urea Nitrogen 7 mg/dL (9-20); Calcium 9.2 mg/dL (8.4-10.2); Carbon Dioxide 24 mmol/L (22-30); Chloride 98 mmol/L (98-107); Estimated CRCL calculation 132 ml/min; Estimated Glomerular Filt Rate > 60; Glucose 97 mg/dL (65-110); Potassium 3.5 mmol/L (3.4-5.0); Sodium 137 mmol/L (137-145)
[2024-11-21 18:30] VITALS: BP 176/99; PULSE 86; RESP 16; O2SAT 100
== END 2024-11-21 18:48 | disposition home or self-care (01) ==
PROVIDERS: Emergency Provider Student in an Organized Health Care Education/Training Program
DX: F41.9 Anxiety disorder, unspecified (principal); F10.10 Alcohol abuse, uncomplicated
CPT/HCPCS: 36415; 80053; 85025; 99283; A9270; J7121

== ENCOUNTER 2025-03-01 23:53 | Emergency (ER) | payer SELFPAY ==
[2025-03-01 23:58] VITALS: BP 130/75; PULSE 97; RESP 14; TEMP 36.4; O2SAT 91
[2025-03-02 04:24] VITALS: BP 114/79; PULSE 79; RESP 16; O2SAT 98
--- NOTE | 2025-03-02 05:19 | ED.WOUNDLAC ---
HPI - Wound/Laceration General Chief Complaint: Wound/Laceration Stated Complaint: laceration to left wrist Time Seen by Provider: 03/02/25 04:43 History of Present Illness HPI narrative: 29-year-old male with a history of alcohol abuse presenting to the emergency department with a laceration to his left wrist at the ulnar aspect. He states he accidentally punched a window and the glass shattered and cut himself very lightly. He has very superficial laceration to the ulnar aspect of the left wrist that measures approximately 3.0 cm with no active bleeding. His tetanus is already updated. Pain is controlled. Came in for wound repair. No other injuries. Bleeding under control. Was otherwise in her normal state of health. Clinically sober at this time. Related Data Allergies Allergy/AdvReac Type Severity Reaction Status Date / Time No Known Allergies Allergy Verified 09/12/24 20:34 Review of Systems Review of Systems: As reviewed above [facility] Past Medical History Medical History Healthy adult male Surgical History Surgical History No pertinent past surgical history Social History Social History Substance use type: does not use Exam Narrative: GENERAL: [Well-appearing, well-nourished, and in no acute distress.] HEAD: [Normocephalic, atraumatic.] EYES: [PERRLA and EOMI.] ENT: Nares clear, no rhinorrhea or epistaxis. Mucous membranes moist. NECK: Supple. CHEST: [Clear to auscultation. No respiratory distress.] HEART: [Regular rate and rhythm]. No murmur heard. [Normal peripheral pulses.] ABDOMEN: [Soft, nondistended], [nontender], [No rigidity or guarding] EXTREMITIES: Normal range of motion. [No edema.] SKIN: Distal ulnar aspect of the left wrist has a 3.0 cm laceration without any significant dehiscence or depth. Just a superficial top layer is lacerated without any exposed musculature or tendons. Full range of motion of the extremity. Bleeding is controlled. NEURO: [No focal deficits]. Alert and oriented [x3.] PSYCH: [Normal mood and affect.] Course Vital Signs Vital signs: Vital Signs Temperature 36.4 C L 03/01/25 23:58 Pulse Rate 97 03/01/25 23:58 Respiratory Rate 14 03/01/25 23:58 Blood Pressure 130/75 03/01/25 23:58 Pulse Oximetry 91 03/01/25 23:58 Oxygen Delivery Room Air 03/01/25 23:58 Temperature 36.4 C L 03/01/25 23:58 Pulse Rate 79 03/02/25 04:24 Respiratory Rate 16 03/02/25 04:24 Blood Pressure 114/79 03/02/25 04:24 Pulse Oximetry 98 03/02/25 04:24 Oxygen Delivery Room Air 03/01/25 23:58 Procedures Laceration Laceration 1: Date: 03/02/25 Time: 05:21 Site: upper extremity Side (If applicable): left Size (cm): 3 Description: linear and clean Depth: simple, single layer Local Anesthetic: none Pre-repair: wound explored, irrigated and deep structures intact ====== Skin Level ====== Skin layer closed with: dermabond and steri strips ====== Subcutaneous Layer ====== ====== Muscle Layer ====== ====== Tendon Layer ====== Dressing: Non adherent dressing placed over top MDM - Wound/Laceration MDM Narrative Medical decision making narrative: 29-year-old male with a history of alcohol abuse presenting to the emergency department with a laceration to his left wrist at the ulnar aspect. He states he accidentally punched a window and the glass shattered and cut himself very lightly. He has very superficial laceration to the ulnar aspect of the left wrist that measures approximately 3.0 cm with no active bleeding. His tetanus is already updated. Pain is controlled. Came in for wound repair. No other injuries. Bleeding under control. Was otherwise in her normal state of health. Clinically sober at this time. Distal ulnar aspect of the left wrist has a 3.0 cm laceration without any significant dehiscence or depth. Just a superficial top layer is lacerated without any exposed musculature or tendons. Full range of motion of the extremity. Bleeding is controlled. Laceration was repaired with Dermabond and Steri-Strips given the superficial nature and wound came together nicely. He was given wound care instructions and safely discharged home at this time with return precautions and follow-up instructions. Discharge Plan Discharge Clinical Impression: Laceration Patient Disposition: Home Condition: Stable Instructions: Antibiotic Form, Laceration (ED), Skin Adhesive Care (ED), Skin Adhesive Strips (ED) Additional Instructions: Keep the area covered and dry for the next 24 hours to allow the skin glue to naturally cure. The top layer of Steri-Strips will fall off naturally on their own do not pull them off. After 24 hours he can wash the area with gentle soap and water but do not scrub. Skin glue will flake off naturally after several days. Follow-up with regular doctor. Return with signs of infection or any other concerns. Patient Language: Sinhala Prescriptions: No Action oseltamivir [Tamiflu] 75 mg capsule 75 mg PO Q12H 5 Days Qty: 10 0RF hydroxyzine pamoate 25 mg capsule 25 mg PO TID PRN (Reason: anxiety) Qty: 20 0RF hydroxyzine pamoate [Vistaril] 25 mg capsule 25 mg PO TID PRN (Reason: anxiety) Qty: 30 0RF hydroxyzine HCl 25 mg tablet 25 mg PO TID PRN (Reason: anxiety) Qty: 30 0RF benzonatate 100 mg capsule 100 mg PO TID PRN (Reason: cough) Qty: 14 0RF methylprednisolone [Medrol (Epi)] 4 mg tablets,dose pack See Rx Instructions .ROUTE .COMPLEX Qty: 21 0RF Rx Instructions: for 6 days albuterol sulfate 90 mcg/actuation HFA aerosol inhaler 2 puff inhalation QID PRN (Reason: shortness of breath or wheezing) Qty: 8.5 0RF benzonatate 100 mg capsule 100 mg PO TID PRN (Reason: cough) Qty: 14 0RF albuterol sulfate 90 mcg/actuation HFA aerosol inhaler 1 puff inhalation QID Qty: 6.7 0RF Follow-up/Referrals: PHYSICIAN,HEARING INSTRUMENT SPECIALIST [Primary Care Provider] - Time of Disposition: 05:22
== END 2025-03-02 05:40 | disposition home or self-care (01) ==
PROVIDERS: Emergency Provider Student in an Organized Health Care Education/Training Program
DX: S61.512A Laceration without foreign body of left wrist, initial encounter (principal); W25.XXXA Contact with sharp glass, initial encounter
CPT/HCPCS: 12002; 99282

== ENCOUNTER 2025-03-05 19:39 | Emergency (ER) | payer SELFPAY ==
[2025-03-05 19:53] VITALS: BP 143/70; PULSE 111; RESP 20; TEMP 36.9; O2SAT 94
--- NOTE | 2025-03-05 19:58 | ED_ITS ---
HPI - Psych General Chief Complaint: Psychiatric Symptoms <Teresergio Dubonver III, DO - Last Filed: 03/05/25 21:55> Stated Complaint: SI comments, involuntary, ETOH+ <Teresergio Gordon III, DO - Last Filed: 03/05/25 21:55> Time Seen by Provider: 03/05/25 19:51 <Tere Cyrus Gordon III, DO - Last Filed: 03/05/25 21:55> History of Present Illness HPI Narrative: Pt presents to ED after telling people that they did not care about him and wouldn't care if he was gone. Pt says he is not suicidal and believes in god so would not klill himself. Pt does admit to consuming 5 pints of fireball today. Pt was here recently for similar issues. <Tere Dubonver III, DO - Last Filed: 03/05/25 21:55> Related Data Allergies/Adverse Reactions: Allergies Allergy/AdvReac Type Severity Reaction Status Date / Time No Known Allergies Allergy Verified 03/06/25 02:27 <Teresergio Bridges Gordon III, DO - Last Filed: 03/05/25 21:55> Review of Systems 2 Review of Systems: All systems reviewed & are unremarkable except as noted in HPI and below <Tere Gordon III, DO - Last Filed: 03/05/25 21:55> PMFSH Past Medical History Medical History: Medical History Healthy adult male <Teresergio Dubonver III, DO - Last Filed: 03/05/25 21:55> Surgical History Surgical History: Surgical History No pertinent past surgical history <Teresergio Bridges Grodon III, DO - Last Filed: 03/05/25 21:55> Social History Social History: Social History Substance use type: does not use <Teresergio Bridges Gordon III, DO - Last Filed: 03/05/25 21:55> Exam 2 Const: General: no acute distress <Tere Cyrus Gordon III, DO - Last Filed: 03/05/25 21:55> Nutritional Appearance: well nourished <Tere Cyrus Gordon III, DO - Last Filed: 03/05/25 21:55> Orientation/consciousness: patient oriented x3 <Tere Cyrus Gordon III, DO - Last Filed: 03/05/25 21:55> Limitations: other limitations (alcohol) <Tere Cyrus Gordon III, DO - Last Filed: 03/05/25 21:55> HENMT: Head: normal to inspection <Tere Cyrus Gordon III, DO - Last Filed: 03/05/25 21:55> Ears: external ears normal <Tere Cyrus Gordon III, DO - Last Filed: 03/05/25 21:55> Eyes: Pupils: Equal, round and reactive pupils present <Tere Cyrus Gordon III, DO - Last Filed: 03/05/25 21:55> EOM: EOMs intact bilaterally <Tere Cyrus Gordon III, DO - Last Filed: 03/05/25 21:55> Neck: Neck: normal visual inspection <Tere Cyrus Gordon III, DO - Last Filed: 03/05/25 21:55> Resp: Effort & Inspection: normal respiratory effort <Tere Cyrus Gordon III, DO - Last Filed: 03/05/25 21:55> Auscultation: clear to auscultation bilaterally <Tere Cyrus Gordon III, DO - Last Filed: 03/05/25 21:55> Cardio: Rate: regular rate <Tere Cyrus Gordon III, DO - Last Filed: 03/05/25 21:55> Rhythm: regular rhythm <Tere Cyrus Gordon III, DO - Last Filed: 03/05/25 21:55> GI: GI Palp: Yes Soft to palpation and No Tenderness to palpation present (GI) <Tere Cyrus Gordon III, DO - Last Filed: 03/05/25 21:55> Auscultation: normal bowel sounds <Tere Cyrus Gordon III, DO - Last Filed: 03/05/25 21:55> Skin: General skin exam: normal color <Tere Cyrus Gordon III, DO - Last Filed: 03/05/25 21:55> Rashes: no rashes <Tere Cyrus Gordon III, DO - Last Filed: 03/05/25 21:55> Wounds: wounds noted (superficial scratches to wrist) <Tere Cyrus Gordon III, DO - Last Filed: 03/05/25 21:55> Neuro: General: patient oriented x3, moves all extremities and no meningeal signs <Tere Cyrus Gordon III, DO - Last Filed: 03/05/25 21:55> Cranial nerves: Yes Nystagmus not present <Tere Cyrus Gordon III, DO - Last Filed: 03/05/25 21:55> Speech: normal speech <Tere Cyrus Gordon III, DO - Last Filed: 03/05/25 21:55> Extrem: General: normal to inspection and no clubbing, cyanosis or edema < Tere Cyrus Gordon III, DO - Last Filed: 03/05/25 21:55> Psych: Mental Status: mental status grossly normal <Tere Cyrus Gordon III, DO - Last Filed: 03/05/25 21:55> Affect: normal affect <Tere Cyrus Gordon III, DO - Last Filed: 03/05/25 21:55> Attitude: cooperative <Tere Cyrus Gordon III, DO - Last Filed: 03/05/25 21:55> Course Vital Signs Vital signs: Vital Signs Temperature 36.9 C 03/05/25 19:53 Pulse Rate 111 H 03/05/25 19:53 Respiratory Rate 20 03/05/25 19:53 Blood Pressure 143/70 H 03/05/25 19:53 Pulse Oximetry 94 03/05/25 19:53 Oxygen Delivery Room Air 03/05/25 19:53 Temperature 36.4 C 03/06/25 08:29 Pulse Rate 71 03/06/25 08:29 Respiratory Rate 18 03/06/25 08:29 Blood Pressure 143/81 H 03/06/25 08:29 Pulse Oximetry 97 03/06/25 08:29 Oxygen Delivery Room Air 03/05/25 19:53 <Tere Cyrus Gordon III, DO - Last Filed: 03/05/25 21:55> Vital Signs Temperature 36.9 C 03/05/25 19:53 Pulse Rate 111 H 03/05/25 19:53 Respiratory Rate 20 03/05/25 19:53 Blood Pressure 143/70 H 03/05/25 19:53 Pulse Oximetry 94 03/05/25 19:53 Oxygen Delivery Room Air 03/05/25 19:53 Temperature 36.4 C 03/06/25 08:29 Pulse Rate 71 03/06/25 08:29 Respiratory Rate 18 03/06/25 08:29 Blood Pressure 143/81 H 03/06/25 08:29 Pulse Oximetry 97 03/06/25 08:29 Oxygen Delivery Room Air 03/05/25 19:53 <Danielle Umanzor MD - Last Filed: 03/06/25 06:57> Vital Signs Temperature 36.9 C 03/05/25 19:53 Pulse Rate 111 H 03/05/25 19:53 Respiratory Rate 20 03/05/25 19:53 Blood Pressure 143/70 H 03/05/25 19:53 Pulse Oximetry 94 03/05/25 19:53 Oxygen Delivery Room Air 03/05/25 19:53 Temperature 36.4 C 03/06/25 08:29 Pulse Rate 71 03/06/25 08:29 Respiratory Rate 18 03/06/25 08:29 Blood Pressure 143/81 H 03/06/25 08:29 Pulse Oximetry 97 03/06/25 08:29 Oxygen Delivery Room Air 03/05/25 19:53 <Rivka Shell MD - Last Filed: 03/06/25 08:39> MDM - Psych MDM Narrative Medical decision making narrative: Pt made some comments about nobody caring if he was around. Pt denies being suicidal now. PD brought pt to ED. Pt admits to alcohol consumption. will do BH screening and give banana bag with thiamine and folate and some ativan to relax and also prevent withdrawl. Pt refusing IV will give ativan po. alcohol level high. will require extensive time to sober up for eval by crisis. Will turn over to Dr Umanzor at 2200. <Tere Gordon III, - Last Filed: 03/05/25 21:55> Pt made some comments about nobody caring if he was around. Pt denies being suicidal now. PD brought pt to ED. Pt admits to alcohol consumption. will do BH screening and give banana bag with thiamine and folate and some ativan to relax and also prevent withdrawl. Pt refusing IV will give ativan po. alcohol level high. will require extensive time to sober up for eval by crisis. Will turn over to Dr Umanzor at 2200. Elbashir: On repeat assessment, patient is resting comfortably, nonverbal non combative. Pending repeat ETOH level and psychiatric evaluation. <Danielle Umanzor MD - Last Filed: 03/06/25 06:57> Pt made some comments about nobody caring if he was around. Pt denies being suicidal now. PD brought pt to ED. Pt admits to alcohol consumption. will do BH screening and give banana bag with thiamine and folate and some ativan to relax and also prevent withdrawl. Pt refusing IV will give ativan po. alcohol level high. will require extensive time to sober up for eval by crisis. Will turn over to Dr Umanzor at 2200. Elbalizzieir: On repeat assessment, patient is resting comfortably, nonverbal non combative. Pending repeat ETOH level and psychiatric evaluation. CURRENTLY PATIENT IS AWAKE, ALERT ORIENTED X4, DENYING ANY SUICIDAL OR HOMICIDAL IDEATION, UPPER GI GOING FOR WHAT HAVE BEEN IN THE LAST FEW HOURS. HIS TELLING ME THAT HE WOULD LIKE TO GO SEE HIS FAMILY AND AND TAKE A NAP AND REST A LITTLE BED. ALCOHOL LEVEL AT THIS TIME IS 105 COMPARED TO 324 ON ARRIVAL <Rivka Shell MD - Last Filed: 03/06/25 08:39> Lab Data Result diagrams: 03/05/25 20:09 03/05/25 20:09 <Tere Gordon III, DO - Last Filed: 03/05/25 21:55> Labs: Lab Results 03/05/25 03/06/25 Range/Units 20:09 06:48 WBC 9.0 (4.5-10.0) K/mm3 RBC 5.68 (4.6-6.20) M/mm3 Hgb 16.8 (14.0-18.0) g/dL Hct 48.4 (42.0-52.0) % MCV 85.2 (80-100) fl MCH 29.6 (26-34) pg MCHC 34.7 (32-36) g/dl RDW 12.1 (11.5-14.5) % Plt Count 259 (150-375) k/mm3 MPV 8.8 (7.4-10.4) fl Immature Gran % (Auto) 0.2 (0-0.5) % Neut % (Auto) 63.8 (45.5-73.1) % Lymph % (Auto) 30.4 (18.3-44.2) % [place] % (Auto) 4.7 (2.6-8.5) % Eos % (Auto) 0.7 (0-4.4) % Baso % (Auto) 0.2 (0.2-1.2) % Lymph # (Auto) 2.73 (0.9-3.2) K/mm3 [place] # (Auto) 0.4 (0.1-0.6) K/mm3 Eos # (Auto) 0.1 (0-0.3) K/mm3 Baso # (Auto) 0.0 (0.0-0.1) K/mm3 Abs Immat Gran (auto) 0.02 (0.00-0.031) K/mm3 Absolute Neuts (auto) 5.7 (1.3-6.7) K/mm3 Absolute Nucleated RBC 0.000 (0.0-0.012) K/mm3 Nucleated RBC % 0.0 (0.0-0.2) % Sodium 146 H (137-145) mmol/L Potassium 3.6 (3.4-5.0) mmol/L Chloride 106 (98-107) mmol/L Carbon Dioxide 24 (22-30) mmol/L Anion Gap 16 H (4-12) mmol/L BUN 3 L (9-20) mg/dL Creatinine 0.91 (0.7-1.3) mg/dL Estim Creat Clear Calc Not Reportable Estimated GFR > 60 (59 - ) Glucose 98 (65-110) mg/dL Calcium 9.2 (8.4-10.2) mg/dL Total Bilirubin 0.5 (0.2-1.3) mg/dL AST 50 (17-59) U/L ALT 37 (6-50) U/L Alkaline Phosphatase 100 (38-126) U/L Total Protein 8.4 H (6.3-8.2) g/dL Albumin 4.8 (3.5-5.1) g/dL TSH (Reflex) 2.450 (0.465-4.68) uIU/mL Urine Color Yellow (Yellow) Urine Appearance Clear (Clear) Urine pH 6.5 (5.0-9.0) Ur Specific [place] 1.005 (1.001-1.035) Urine Protein Negative (Negative) mg/dL Urine Glucose (UA) Negative (Negative) mg/dL Urine Ketones Negative (Negative) mg/dL Ur Blood (Man) Negative (Negative) Urine Nitrate Negative (Negative) Urine Bilirubin Negative (Negative) Urine Urobilinogen 1.0 (<2.0) mg/dL Leukocyte Esterase Rfl Negative (Negative) ARMANDO/UL Urine Opiates Screen Negative (Negative) Urine Methadone Screen Negative (Negative) Ur Barbiturates Screen Negative (Negative) Ur Phencyclidine Scrn Negative (Negative) Ur Amphetamine Screen Negative (Negative) U Benzodiazepines Scrn Positive A (Negative) Urine Cocaine Screen Negative (Negative) U Cannabinoids Screen Negative (Negative) Ethyl Alcohol 324 H* 105 (<10) mg/dL Influenza A (RT-PCR) Negative (Negative) Influenza B (RT-PCR) Negative (Negative) RSV (RT-PCR) Negative (Negative) SARS-CoV-2 RNA (RT-PCR) Negative (Negative) <Tere Gordon III, DO - Last Filed: 03/05/25 21:55> Lab Results 03/05/25 03/06/25 Range/Units 20:09 06:48 WBC 9.0 (4.5-10.0) K/mm3 RBC 5.68 (4.6-6.20) M/mm3 Hgb 16.8 (14.0-18.0) g/dL Hct 48.4 (42.0-52.0) % MCV 85.2 (80-100) fl MCH 29.6 (26-34) pg MCHC 34.7 (32-36) g/dl RDW 12.1 (11.5-14.5) % Plt Count 259 (150-375) k/mm3 MPV 8.8 (7.4-10.4) fl Immature Gran % (Auto) 0.2 (0-0.5) % Neut % (Auto) 63.8 (45.5-73.1) % Lymph % (Auto) 30.4 (18.3-44.2) % [place] % (Auto) 4.7 (2.6-8.5) % Eos % (Auto) 0.7 (0-4.4) % Baso % (Auto) 0.2 (0.2-1.2) % Lymph # (Auto) 2.73 (0.9-3.2) K/mm3 [place] # (Auto) 0.4 (0.1-0.6) K/mm3 Eos # (Auto) 0.1 (0-0.3) K/mm3 Baso # (Auto) 0.0 (0.0-0.1) K/mm3 Abs Immat Gran (auto) 0.02 (0.00-0.031) K/mm3 Absolute Neuts (auto) 5.7 (1.3-6.7) K/mm3 Absolute Nucleated RBC 0.000 (0.0-0.012) K/mm3 Nucleated RBC % 0.0 (0.0-0.2) % Sodium 146 H (137-145) mmol/L Potassium 3.6 (3.4-5.0) mmol/L Chloride 106 (98-107) mmol/L Carbon Dioxide 24 (22-30) mmol/L Anion Gap 16 H (4-12) mmol/L BUN 3 L (9-20) mg/dL Creatinine 0.91 (0.7-1.3) mg/dL Estim Creat Clear Calc Not Reportable Estimated GFR > 60 (59 - ) Glucose 98 (65-110) mg/dL Calcium 9.2 (8.4-10.2) mg/dL Total Bilirubin 0.5 (0.2-1.3) mg/dL AST 50 (17-59) U/L ALT 37 (6-50) U/L Alkaline Phosphatase 100 (38-126) U/L Total Protein 8.4 H (6.3-8.2) g/dL Albumin 4.8 (3.5-5.1) g/dL TSH (Reflex) 2.450 (0.465-4.68) uIU/mL Urine Color Yellow (Yellow) Urine Appearance Clear (Clear) Urine pH 6.5 (5.0-9.0) Ur Specific [place] 1.005 (1.001-1.035) Urine Protein Negative (Negative) mg/dL Urine Glucose (UA) Negative (Negative) mg/dL Urine Ketones Negative (Negative) mg/dL Ur Blood (Man) Negative (Negative) Urine Nitrate Negative (Negative) Urine Bilirubin Negative (Negative) Urine Urobilinogen 1.0 (<2.0) mg/dL Leukocyte Esterase Rfl Negative (Negative) ARMANDO/UL Urine Opiates Screen Negative (Negative) Urine Methadone Screen Negative (Negative) Ur Barbiturates Screen Negative (Negative) Ur Phencyclidine Scrn Negative (Negative) Ur Amphetamine Screen Negative (Negative) U Benzodiazepines Scrn Positive A (Negative) Urine Cocaine Screen Negative (Negative) U Cannabinoids Screen Negative (Negative) Ethyl Alcohol 324 H* 105 (<10) mg/dL Influenza A (RT-PCR) Negative (Negative) Influenza B (RT-PCR) Negative (Negative) RSV (RT-PCR) Negative (Negative) SARS-CoV-2 RNA (RT-PCR) Negative (Negative) <Danielle Umanzor MD - Last Filed: 03/06/25 06:57> Lab Results 03/05/25 03/06/25 Range/Units 20:09 06:48 WBC 9.0 (4.5-10.0) K/mm3 RBC 5.68 (4.6-6.20) M/mm3 Hgb 16.8 (14.0-18.0) g/dL Hct 48.4 (42.0-52.0) % MCV 85.2 (80-100) fl MCH 29.6 (26-34) pg MCHC 34.7 (32-36) g/dl RDW 12.1 (11.5-14.5) % Plt Count 259 (150-375) k/mm3 MPV 8.8 (7.4-10.4) fl Immature Gran % (Auto) 0.2 (0-0.5) % Neut % (Auto) 63.8 (45.5-73.1) % Lymph % (Auto) 30.4 (18.3-44.2) % [place] % (Auto) 4.7 (2.6-8.5) % Eos % (Auto) 0.7 (0-4.4) % Baso % (Auto) 0.2 (0.2-1.2) % Lymph # (Auto) 2.73 (0.9-3.2) K/mm3 [place] # (Auto) 0.4 (0.1-0.6) K/mm3 Eos # (Auto) 0.1 (0-0.3) K/mm3 Baso # (Auto) 0.0 (0.0-0.1) K/mm3 Abs Immat Gran (auto) 0.02 (0.00-0.031) K/mm3 Absolute Neuts (auto) 5.7 (1.3-6.7) K/mm3 Absolute Nucleated RBC 0.000 (0.0-0.012) K/mm3 Nucleated RBC % 0.0 (0.0-0.2) % Sodium 146 H (137-145) mmol/L Potassium 3.6 (3.4-5.0) mmol/L Chloride 106 (98-107) mmol/L Carbon Dioxide 24 (22-30) mmol/L Anion Gap 16 H (4-12) mmol/L BUN 3 L (9-20) mg/dL Creatinine 0.91 (0.7-1.3) mg/dL Estim Creat Clear Calc Not Reportable Estimated GFR > 60 (59 - ) Glucose 98 (65-110) mg/dL Calcium 9.2 (8.4-10.2) mg/dL Total Bilirubin 0.5 (0.2-1.3) mg/dL AST 50 (17-59) U/L ALT 37 (6-50) U/L Alkaline Phosphatase 100 (38-126) U/L Total Protein 8.4 H (6.3-8.2) g/dL Albumin 4.8 (3.5-5.1) g/dL TSH (Reflex) 2.450 (0.465-4.68) uIU/mL Urine Color Yellow (Yellow) Urine Appearance Clear (Clear) Urine pH 6.5 (5.0-9.0) Ur Specific [place] 1.005 (1.001-1.035) Urine Protein Negative (Negative) mg/dL Urine Glucose (UA) Negative (Negative) mg/dL Urine Ketones Negative (Negative) mg/dL Ur Blood (Man) Negative (Negative) Urine Nitrate Negative (Negative) Urine Bilirubin Negative (Negative) Urine Urobilinogen 1.0 (<2.0) mg/dL Leukocyte Esterase Rfl Negative (Negative) ARMANDO/UL Urine Opiates Screen Negative (Negative) Urine Methadone Screen Negative (Negative) Ur Barbiturates Screen Negative (Negative) Ur Phencyclidine Scrn Negative (Negative) Ur Amphetamine Screen Negative (Negative) U Benzodiazepines Scrn Positive A (Negative) Urine Cocaine Screen Negative (Negative) U Cannabinoids Screen Negative (Negative) Ethyl Alcohol 324 H* 105 (<10) mg/dL Influenza A (RT-PCR) Negative (Negative) Influenza B (RT-PCR) Negative (Negative) RSV (RT-PCR) Negative (Negative) SARS-CoV-2 RNA (RT-PCR) Negative (Negative) <Rivka Shell MD - Last Filed: 03/06/25 08:39> Discharge Plan Discharge Clinical Impression: Alcohol intoxication <Tere Cyrus Evan MINOR, DO - Last Filed: 03/05/25 21:55> Patient Disposition: Home <Tere Cyrus Evan MINOR, DO - Last Filed: 03/05/25 21:55> Condition: Improved <Tere Gordon III, DO - Last Filed: 03/05/25 21:55> Instructions: Abuse of Alcohol (ED) <Tere Gordon III, DO - Last Filed: 03/05/25 21:55> Additional Instructions: RETURN IF SYMPTOMS ARE WORSENING , CALL YOUR FAMILY PHYSICIAN FOR APPOINTMENT, TAKE TYLENOL NEEDED FOR ACHES AND PAIN, CONTINUE HOME MEDICATIONS. <Tere Gordon III, DO - Last Filed: 03/05/25 21:55> Patient Language: Lithuanian <Tere Gordon III, DO - Last Filed: 03/05/25 21:55> Prescriptions: No Action oseltamivir [Tamiflu] 75 mg capsule 75 mg PO Q12H 5 Days Qty: 10 0RF hydroxyzine pamoate 25 mg capsule 25 mg PO TID PRN (Reason: anxiety) Qty: 20 0RF hydroxyzine pamoate [Vistaril] 25 mg capsule 25 mg PO TID PRN (Reason: anxiety) Qty: 30 0RF hydroxyzine HCl 25 mg tablet 25 mg PO TID PRN (Reason: anxiety) Qty: 30 0RF benzonatate 100 mg capsule 100 mg PO TID PRN (Reason: cough) Qty: 14 0RF methylprednisolone [Medrol (Epi)] 4 mg tablets,dose pack See Rx Instructions .ROUTE .COMPLEX Qty: 21 0RF Rx Instructions: for 6 days albuterol sulfate 90 mcg/actuation HFA aerosol inhaler 2 puff inhalation QID PRN (Reason: shortness of breath or wheezing) Qty: 8.5 0RF benzonatate 100 mg capsule 100 mg PO TID PRN (Reason: cough) Qty: 14 0RF albuterol sulfate 90 mcg/actuation HFA aerosol inhaler 1 puff inhalation QID Qty: 6.7 0RF <Tere Gordon III, DO - Last Filed: 03/05/25 21:55> Follow-up/Referrals: PHYSICIAN,[employer]EARCH [employer]IL SCIENTIST [Primary Care Provider] - <Tere Gordon III, DO - Last Filed: 03/05/25 21:55>
[2025-03-05 20:19] LABS: Hematocrit 48.4 % (42.0-52.0); Hemoglobin 16.8 g/dL (14.0-18.0); Immature Granulocyte Percent A 0.2 % (0-0.5); Lymphocytes Absolute Auto 2.73 K/mm3 (0.9-3.2); Mean Corpuscular HGB Conc 34.7 g/dl (32-36); Mean Corpuscular Hemoglobin 29.6 pg (26-34); Mean Corpuscular Volume 85.2 fl (80-100); Nucleated Red Blood Cells Absolute Auto 0.000 K/mm3 (0.0-0.012); Nucleated Red Blood Cells Perc 0.0 % (0.0-0.2); Platelet Count Result 259 k/mm3 (150-375); Red Blood Count 5.68 M/mm3 (4.6-6.20); White Blood Count 9.0 K/mm3 (4.5-10.0)
[2025-03-05 20:25] LABS: Add Urine Microscopic? NO; Appearance Urine Clear (Clear); Glucose Urine UA Negative (Negative); Leukocyte Esterase Ur Negative LEU/UL (Negative); Nitrate Urine Negative (Negative); Specific Grav Ur 1.005 (1.001-1.035)
[2025-03-05 20:29] LABS: Alanine Aminotransferase 37 U/L (6-50); Albumin Level 4.8 g/dL (3.5-5.1); Alkaline Phosphatase 100 U/L (38-126); Anion Gap 16 mmol/L (4-12); Aspartate Amino Transferase 50 U/L (17-59); Bilirubin,Total 0.5 mg/dL (0.2-1.3); Blood Urea Nitrogen 3 mg/dL (9-20); Calcium 9.2 mg/dL (8.4-10.2); Carbon Dioxide 24 mmol/L (22-30); Chloride 106 mmol/L (98-107); Estimated Glomerular Filt Rate > 60; Glucose 98 mg/dL (65-110); Potassium 3.6 mmol/L (3.4-5.0); Sodium 146 mmol/L (137-145); Total Protein 8.4 g/dL (6.3-8.2)
--- NOTE | 2025-03-05 20:34 | PC.NURSE ---
pt refusing to get IV and medication. pt states What can I do to go to skilled nursing?. pt refusing to give up phone, shirt, and hat. Security called. technical fellow and EDP made aware
[2025-03-05 20:53] LABS: Cannabinoid Screen Urine Negative (Negative)
[2025-03-05 20:55] LABS: Influenza A QL RT-PCR Negative (Negative); Influenza B QL RT-PCR Negative (Negative); RSV RNA, RT-PCR Negative (Negative); SARS-CoV-2 RNA PCR Negative (Negative)
[2025-03-05 21:00] LABS: Thyroid Stimulating Hormone Reflex 2.450 uIU/mL (0.465-4.68)
[2025-03-05] MEDS: LORazepam (*CRX) 1 MG TABLET PO (21:12)
[2025-03-06 06:54] VITALS: BP 148/91; PULSE 92; RESP 16; TEMP 36.1; O2SAT 97
--- NOTE | 2025-03-06 08:20 | PC.NURSE ---
PT gave consent for RN to give his mother Talia Gordon an update regarding his status
[2025-03-06 08:29] VITALS: BP 143/81; PULSE 71; RESP 18; TEMP 36.4; O2SAT 97
[2025-03-06 08:45] VITALS: BP 152/74; PULSE 72; RESP 17; TEMP 36.6; O2SAT 97
== END 2025-03-06 09:13 | disposition home or self-care (01) ==
PROVIDERS: Emergency Medicine; Emergency Provider Emergency Medicine
DX: F10.129 Alcohol abuse with intoxication, unspecified (principal); Y90.8 Blood alcohol level of 240 mg/100 ml or more; Z11.52 Encounter for screening for COVID-19
CPT/HCPCS: 36415; 80053; 80307; 81003; 82077; 84443; 85025; 87637; 96374; 99284; A9270

== ENCOUNTER 2025-03-13 03:04 | Emergency (ER) | payer SELFPAY ==
--- NOTE | ~2025-03-13 | XR_ITS ---
Portable chest x-ray Comparison: 11/20/2024 Clinical History: Chest pain Findings: Lungs are clear, without focal consolidation or pleural effusion. Cardiomediastinal silho uette is stable. Bones and soft tissues are unremarkable. Impression: Normal chest. Reviewed, dictated and finalized at [facility]. Impression: Normal chest.
[2025-03-13 03:03] VITALS: BP 149/85; PULSE 97; RESP 16; TEMP 36.9; O2SAT 100
--- NOTE | 2025-03-13 03:08 | ECG_ITS ---
Test Date: 2025-03-13 03:10:54 Measurements Intervals Harper Rate: 95 P: 51 WV: 153 QRS: 42 QRSD: 85 T: 5 QT: 327 QTc: 411 Interpretive Statements SINUS RHYTHM NONSPECIFIC T-WAVE ABNORMALITY ABNORMAL ECG Compared to ECG 11/20/2024 19:50:47 NO DIFFERENCE Electronically Signed On 03-13-2025 10:13:48 CDT by Nixon Mcgill M.D.
[2025-03-13 03:21] VITALS: PULSE 96
[2025-03-13 03:41] LABS: Hematocrit 44.3 % (42.0-52.0); Hemoglobin 15.8 g/dL (14.0-18.0); Immature Granulocyte Percent A 0.6 % (0-0.5); Lymphocytes Absolute Auto 2.30 K/mm3 (0.9-3.2); Mean Corpuscular HGB Conc 35.7 g/dl (32-36); Mean Corpuscular Hemoglobin 30.0 pg (26-34); Mean Corpuscular Volume 84.1 fl (80-100); Nucleated Red Blood Cells Absolute Auto 0.000 K/mm3 (0.0-0.012); Nucleated Red Blood Cells Perc 0.0 % (0.0-0.2); Platelet Count Result 174 k/mm3 (150-375); Red Blood Count 5.27 M/mm3 (4.6-6.20); White Blood Count 7.0 K/mm3 (4.5-10.0)
[2025-03-13] MEDS: ASPIRIN 81 MG CHEWABLE TABLET 324 MG PO (03:41)
[2025-03-13 03:45] VITALS: BP 133/83; PULSE 91; RESP 19; O2SAT 97
[2025-03-13 03:46] LABS: Add Urine Microscopic? YES; Appearance Urine Cloudy (Clear); Glucose Urine UA Negative (Negative); Leukocyte Esterase Ur Trace LEU/UL (Negative); Nitrate Urine Negative (Negative); Non Pathogenic Casts 0-2; Specific Grav Ur 1.020 (1.001-1.035)
[2025-03-13 03:52] LABS: INR 1.0; Prothrombin Time 13.6 Seconds (11.1-14.7)
[2025-03-13 03:54] LABS: Partial Thromboplastin Time 29.9 Seconds (22.3-36.8)
[2025-03-13 04:03] LABS: Alanine Aminotransferase 114 U/L (6-50); Albumin Level 4.2 g/dL (3.5-5.1); Alkaline Phosphatase 151 U/L (38-126); Anion Gap 15 mmol/L (4-12); Aspartate Amino Transferase 97 U/L (17-59); Bilirubin,Total 0.4 mg/dL (0.2-1.3); Blood Urea Nitrogen 10 mg/dL (9-20); Calcium 8.7 mg/dL (8.4-10.2); Carbon Dioxide 22 mmol/L (22-30); Chloride 99 mmol/L (98-107); Estimated CRCL calculation 162 ml/min; Estimated Glomerular Filt Rate > 60; Glucose 104 mg/dL (65-110); Lipase 100 U/L (23-300); Magnesium 1.7 mg/dL (1.6-2.3); Potassium 3.5 mmol/L (3.4-5.0); Sodium 136 mmol/L (137-145); Total Protein 7.5 g/dL (6.3-8.2)
--- NOTE | 2025-03-13 04:06 | ED_ITS ---
HPI - Chest Pain General Chief Complaint: Chest Pain Stated Complaint: INTERMITTENT NON-RADIATING CP X 4 HOURS History of Present Illness HPI narrative: Patient is a 29-year-old male who presents to the emergency department this evening complaining of palpitations and right-sided chest pain which started approximately 5 hours ago. Patient states that he normally does get palpitations after he drinks and admits that yesterday he was drinking. States that he does not drink every day. Denies any active chest pain or shortness of breath. No nausea or vomiting, any abdominal pain. There are no other modifying, alleviating, or precipitating factors at this time. Related Data Allergies Allergy/AdvReac Type Severity Reaction Status Date / Time No Known Allergies Allergy Verified 03/13/25 03:46 Review of Systems 2 Review of Systems: All systems are reviewed and are negative unless stated otherwise in the HPI. [facility] Past Medical History Medical History Healthy adult male Surgical History Surgical History No pertinent past surgical history Social History Social History Substance use type: does not use Exam 2 Narrative: General: Alert, awake, afebrile, in no acute distress. HEENT: PERRL, no rhinorrhea, no post nasal drip, oropharynx clear. Neck: Trachea midline, no JVD, no lymphadenopathy. Cardiovascular: Regular rate and rhythm, no murmurs, rubs or gallops, no peripheral edema. Respiratory: Clear to auscultation bilaterally, no tachypnea, no wheezing, no rhonchi, no rubs, no respiratory distress. Abdomen: Soft, nontender, nondistended, no rebound, no guarding, no peritoneal signs. Musculoskeletal: No joint swelling or deformity, normal muscle tone. Skin: No rashes or petechia, no signs of infection. Psychiatric: Alert and oriented, normal behavior and judgment for situation. Neurological: Alert and oriented to person, place, and time. Follows all commands. No focal deficits, speech is clear and fluent. Course Vital Signs Vital signs: Vital Signs Temperature 98.5 F 03/13/25 03:03 Pulse Rate 97 03/13/25 03:03 Respiratory Rate 16 03/13/25 03:03 Blood Pressure 149/85 H 03/13/25 03:03 Pulse Oximetry 100 03/13/25 03:03 Oxygen Delivery Room Air 03/13/25 03:03 Temperature 98.5 F 03/13/25 03:03 Pulse Rate 91 03/13/25 03:45 Respiratory Rate 19 03/13/25 03:45 Blood Pressure 133/83 03/13/25 03:45 Pulse Oximetry 97 03/13/25 03:45 Oxygen Delivery Room Air 03/13/25 03:03 MDM - Chest Pain MDM Narrative Medical decision making narrative: The patient was evaluated by myself in the emergency department. History is obtained from patient who is an independent historian and physical exam was performed. External medical records were reviewed at this time. IV was established and pertinent tests were ordered. Patient was administered 1 L IV fluid bolus with normal saline and a full dose oral chewable aspirin. EKG was obtained which revealed sinus rhythm rate of 95 beats per minute, no evidence of acute ischemia. EKG was independently interpreted by me and is currently pending official cardiology read. Laboratory results obtained revealing no acute process. Troponin negative. Imaging studies obtained included CXR which was independently interpreted by me revealing no acute process, which is pending final radiology interpretation. Differential diagnosis considerations include dehydration, electrolyte derangements, acute viral syndrome. Patient was informed that his palpitations could very much be due to his alcohol intake, however, he will be provided with a Cardiology referral for follow-up if he continues to have these episodes as he may need a Holter monitor for further evaluation and patient is in agreement. Comorbidities impacting this visit include none. I have evaluated and discussed social determinants of health with the patient that could potentially impact subsequent diagnosis and treatment plans. On repeat assessment of the patient, reevaluation revealed that the patient is doing well and is in no acute distress. Patient symptoms have improved since he arrived to our emergency department. Repeat vital signs were all reviewed and noted to be stable. Differential diagnosis and treatment plan were discussed with the patient at bedside. Patient agrees with discussion and after shared medical decision making agrees with discharge. All questions were answered to the patient's satisfaction. Patient will follow up with his PCP in 3-5 days. He was provided with a Cardiology referral and instructed to call sooner for follow-up appointment. Patient was provided with strict return precautions and instructed to return to the emergency department if any new or worsening symptoms develop. The patient was discharged in stable condition. Lab Data 03/13/25 03:13 03/13/25 03:13 Labs: Lab Results 03/13/25 03/13/25 03/13/25 Range/Units 03:12 03:13 03:20 WBC 7.0 (4.5-10.0) K/mm3 RBC 5.27 (4.6-6.20) M/mm3 Hgb 15.8 (14.0-18.0) g/dL Hct 44.3 (42.0-52.0) % MCV 84.1 (80-100) fl MCH 30.0 (26-34) pg MCHC 35.7 (32-36) g/dl RDW 12.1 (11.5-14.5) % Plt Count 174 (150-375) k/mm3 MPV 8.8 (7.4-10.4) fl Immature Gran % (Auto) 0.6 H (0-0.5) % Neut % (Auto) 58.9 (45.5-73.1) % Lymph % (Auto) 32.8 (18.3-44.2) % [place] % (Auto) 6.7 (2.6-8.5) % Eos % (Auto) 0.6 (0-4.4) % Baso % (Auto) 0.4 (0.2-1.2) % Lymph # (Auto) 2.30 (0.9-3.2) K/mm3 [place] # (Auto) 0.5 (0.1-0.6) K/mm3 Eos # (Auto) 0.0 (0-0.3) K/mm3 Baso # (Auto) 0.0 (0.0-0.1) K/mm3 Abs Immat Gran (auto) 0.04 H (0.00-0.031) K/mm3 Absolute Neuts (auto) 4.1 (1.3-6.7) K/mm3 Absolute Nucleated RBC 0.000 (0.0-0.012) K/mm3 Nucleated RBC % 0.0 (0.0-0.2) % PT 13.6 (11.1-14.7) Seconds INR 1.0 APTT 29.9 (22.3-36.8) Seconds Sodium 136 L (137-145) mmol/L Potassium 3.5 (3.4-5.0) mmol/L Chloride 99 (98-107) mmol/L Carbon Dioxide 22 (22-30) mmol/L Anion Gap 15 H (4-12) mmol/L BUN 10 D (9-20) mg/dL Creatinine 0.72 (0.7-1.3) mg/dL Estim Creat Clear Calc 162 ml/min Estimated GFR > 60 (59 - ) Glucose 104 (65-110) mg/dL Calcium 8.7 (8.4-10.2) mg/dL Magnesium Cancelled 1.7 Total Bilirubin 0.4 (0.2-1.3) mg/dL AST 97 H (17-59) U/L ALT 114 H (6-50) U/L Alkaline Phosphatase 151 H (38-126) U/L Troponin I < 0.012 (0.000-0.034) ng/mL Total Protein 7.5 (6.3-8.2) g/dL Albumin 4.2 (3.5-5.1) g/dL Lipase 100 (23-300) U/L Urine Color Yellow (Yellow) Urine Appearance Cloudy H (Clear) Urine pH 7.0 (5.0-9.0) Ur Specific [place] 1.020 (1.001-1.035) Urine Protein Negative (Negative) mg/dL Urine Glucose (UA) Negative (Negative) mg/dL Urine Ketones Trace H (Negative) mg/dL Ur Blood (Man) Negative (Negative) Urine Nitrate Negative (Negative) Urine Bilirubin Negative (Negative) Urine Urobilinogen 1.0 (<2.0) mg/dL Leukocyte Esterase Rfl Trace H (Negative) ARMANDO/UL Urine RBC 0-2 (0-2) /hpf Urine WBC 0-5 (0-3) /hpf Ur Squamous Epith Cells None seen (Few) /hpf Urine Bacteria None seen /hpf Urine Casts 0-2 Salicylates (2-20) mg/dL Urine Opiates Screen Negative (Negative) Urine Methadone Screen Negative (Negative) Acetaminophen (10-30) ug/mL Ur Barbiturates Screen Negative (Negative) Ur Phencyclidine Scrn Negative (Negative) Ur Amphetamine Screen Negative (Negative) U Benzodiazepines Scrn Negative (Negative) Urine Cocaine Screen Negative (Negative) U Cannabinoids Screen Negative (Negative) Ethyl Alcohol (<10) mg/dL 03/13/25 Range/Units 03:55 WBC (4.5-10.0) K/mm3 RBC (4.6-6.20) M/mm3 Hgb (14.0-18.0) g/dL Hct (42.0-52.0) % MCV (80-100) fl MCH (26-34) pg MCHC (32-36) g/dl RDW (11.5-14.5) % Plt Count (150-375) k/mm3 MPV (7.4-10.4) fl Immature Gran % (Auto) (0-0.5) % Neut % (Auto) (45.5-73.1) % Lymph % (Auto) (18.3-44.2) % [place] % (Auto) (2.6-8.5) % Eos % (Auto) (0-4.4) % Baso % (Auto) (0.2-1.2) % Lymph # (Auto) (0.9-3.2) K/mm3 [place] # (Auto) (0.1-0.6) K/mm3 Eos # (Auto) (0-0.3) K/mm3 Baso # (Auto) (0.0-0.1) K/mm3 Abs Immat Gran (auto) (0.00-0.031) K/mm3 Absolute Neuts (auto) (1.3-6.7) K/mm3 Absolute Nucleated RBC (0.0-0.012) K/mm3 Nucleated RBC % (0.0-0.2) % PT (11.1-14.7) Seconds INR APTT (22.3-36.8) Seconds Sodium (137-145) mmol/L Potassium (3.4-5.0) mmol/L Chloride (98-107) mmol/L Carbon Dioxide (22-30) mmol/L Anion Gap (4-12) mmol/L BUN (9-20) mg/dL Creatinine (0.7-1.3) mg/dL Estim Creat Clear Calc ml/min Estimated GFR (59 - ) Glucose (65-110) mg/dL Calcium (8.4-10.2) mg/dL Magnesium Total Bilirubin (0.2-1.3) mg/dL AST (17-59) U/L ALT (6-50) U/L Alkaline Phosphatase (38-126) U/L Troponin I (0.000-0.034) ng/mL Total Protein (6.3-8.2) g/dL Albumin (3.5-5.1) g/dL Lipase (23-300) U/L Urine Color (Yellow) Urine Appearance (Clear) Urine pH (5.0-9.0) Ur Specific [place] (1.001-1.035) Urine Protein (Negative) mg/dL Urine Glucose (UA) (Negative) mg/dL Urine Ketones (Negative) mg/dL Ur Blood (Man) (Negative) Urine Nitrate (Negative) Urine Bilirubin (Negative) Urine Urobilinogen (<2.0) mg/dL Leukocyte Esterase Rfl (Negative) ARMANDO/UL Urine RBC (0-2) /hpf Urine WBC (0-3) /hpf Ur Squamous Epith Cells (Few) /hpf Urine Bacteria /hpf Urine Casts Salicylates < 1.0 L (2-20) mg/dL Urine Opiates Screen (Negative) Urine Methadone Screen (Negative) Acetaminophen < 10 L (10-30) ug/mL Ur Barbiturates Screen (Negative) Ur Phencyclidine Scrn (Negative) Ur Amphetamine Screen (Negative) U Benzodiazepines Scrn (Negative) Urine Cocaine Screen (Negative) U Cannabinoids Screen (Negative) Ethyl Alcohol 40 (<10) mg/dL Discharge Plan Discharge Clinical Impression: Heart palpitations Patient Disposition: Home Condition: Improved Instructions: Antibiotic Form, Heart Palpitations (ED) Additional Instructions: Please follow-up with the family doctor within the next 3-5 days. Return emergency department if any new or worsening symptoms develop. Your prior to the Cardiology referral instructed to call to set up a follow-up appointment if you continue to have these palpitations. Patient Language: Syriac Prescriptions: No Action oseltamivir [Tamiflu] 75 mg capsule 75 mg PO Q12H 5 Days Qty: 10 0RF hydroxyzine pamoate 25 mg capsule 25 mg PO TID PRN (Reason: anxiety) Qty: 20 0RF hydroxyzine pamoate [Vistaril] 25 mg capsule 25 mg PO TID PRN (Reason: anxiety) Qty: 30 0RF hydroxyzine HCl 25 mg tablet 25 mg PO TID PRN (Reason: anxiety) Qty: 30 0RF benzonatate 100 mg capsule 100 mg PO TID PRN (Reason: cough) Qty: 14 0RF methylprednisolone [Medrol (Epi)] 4 mg tablets,dose pack See Rx Instructions .ROUTE .COMPLEX Qty: 21 0RF Rx Instructions: for 6 days albuterol sulfate 90 mcg/actuation HFA aerosol inhaler 2 puff inhalation QID PRN (Reason: shortness of breath or wheezing) Qty: 8.5 0RF benzonatate 100 mg capsule 100 mg PO TID PRN (Reason: cough) Qty: 14 0RF albuterol sulfate 90 mcg/actuation HFA aerosol inhaler 1 puff inhalation QID Qty: 6.7 0RF Follow-up/Referrals: PHYSICIAN,PHARMACY BENEFIT MANAGER [Primary Care Provider] - Denisha Laura MD [Physician] - 3 Days Time of Disposition: 04:50
[2025-03-13] MEDS: SODIUM CHLORIDE 0.9% IV 1,000 ML 999 ML IV CONT (04:08)
[2025-03-13 04:12] LABS: Acetaminophen < 10 ug/mL (10-30); Salicylate < 1.0 mg/dL (2-20)
[2025-03-13 04:15] LABS: Troponin I < 0.012 ng/mL (0.000-0.034)
[2025-03-13 04:23] LABS: Cannabinoid Screen Urine Negative (Negative)
== END 2025-03-13 05:25 | disposition home or self-care (01) ==
PROVIDERS: Emergency Provider Emergency Medicine
DX: R00.2 Palpitations (principal)
CPT/HCPCS: 36415; 71045; 80053; 80143; 80179; 80307; 81001; 82077; 83690; 83735; 84484; 85025; 85610; 85730; 93005; 96360; 99284; A9270; J7030

== ENCOUNTER 2025-04-13 03:33 | Emergency (ER) | payer OTHER, SELFPAY | END 2025-04-13 06:11 | disposition left against medical advice (07) | DX: Z53.21 Procedure and treatment not carried out due to patient leaving prior to being seen by health care provider (principal) | CPT/HCPCS: 99199 ==

== ENCOUNTER 2025-08-05 17:08 | Emergency (ER) | payer SELFPAY ==
--- NOTE | ~2025-08-05 | XR_ITS ---
EXAMINATION: XR chest 2V, 08/05/2025 17:25 [facility] [employer] HISTORY: cough, SOB COMPARISON: No comparisons available. Technique: 2 views obtained. Findings: The lungs are clear, no effusion. No pneumothorax. Heart is normal size. Mediastinal and hilar contours are within normal limits. Bony thorax no acute abnormality. Impression: No acute cardiopulmonary abnormality. Reviewed, dictated and finalized at location [facility]. [facility]IN[facility] Impression: No acute cardiopulmonary abnormality.
[2025-08-05 17:13] VITALS: BP 178/105; PULSE 98; RESP 18; TEMP 36.7; O2SAT 98
[2025-08-05 17:37] VITALS: BP 154/93; PULSE 79; RESP 17; O2SAT 98
[2025-08-05] MEDS: IBUPROFEN 600 MG TABLET PO (17:37)
[2025-08-05 17:57] LABS: Influenza A QL RT-PCR Negative (Negative); Influenza B QL RT-PCR Negative (Negative); RSV RNA, RT-PCR Negative (Negative); SARS-CoV-2 RNA PCR Negative (Negative)
--- NOTE | 2025-08-05 18:10 | ED_ITS ---
HPI - URI/Sore Throat General Chief Complaint: Upper Respiratory Infection Stated Complaint: covid symptoms Time Seen by Provider: 08/05/25 17:22 History of Present Illness HPI Narrative: For last few days, patient has had a slight cough, runny nose, sore throat, his work wanted him to be swabbed for COVID so he came in here. Related Data Allergies Allergy/AdvReac Type Severity Reaction Status Date / Time No Known Allergies Allergy Verified 08/05/25 17:16 Review of Systems Review of Systems: All systems reviewed & are unremarkable except as noted in HPI and below PMFSH Past Medical History Medical History Healthy adult male Surgical History Surgical History No pertinent past surgical history Social History Social History Substance use type: does not use Exam Narrative: EXAMINATION OF ORGAN SYSTEMS/BODY AREAS: Constitutional: Vital signs per nursing GENERAL:[No acute distress, non-toxic appearing.] HEAD: Normal with no signs of head trauma. EYES: EOMI, conjunctiva normal ENT: Some slight congestion and some minimal tonsillar swelling and erythema LUNGS: Nonlabored breathing. Clear to auscultation bilaterally HEART: [Regular rate and rhythm] ABD: [Soft], [nontender to palpation] EXT: Normal range of motion SKIN: [No rashes or lesions.] NEURO: [Alert. No gross focal sensory or strength deficits.] PSYCH: Normal affect Course Vital Signs Vital signs: Vital Signs Temperature 98.1 F 08/05/25 17:13 Pulse Rate 98 08/05/25 17:13 Respiratory Rate 18 08/05/25 17:13 Blood Pressure 178/105 H 08/05/25 17:13 Pulse Oximetry 98 08/05/25 17:13 Oxygen Delivery Room Air 08/05/25 17:13 Temperature 98.1 F 08/05/25 17:13 Pulse Rate 79 08/05/25 17:37 Respiratory Rate 17 08/05/25 17:37 Blood Pressure 154/93 H 08/05/25 17:37 Pulse Oximetry 98 08/05/25 17:37 Oxygen Delivery Room Air 08/05/25 17:13 MDM MDM Narrative Medical decision making narrative: ED COURSE AND MEDICAL DECISION MAKING: This 30 year old patient presents with symptoms most suggestive of viral upper respiratory tract infection. Lungs are clear bilaterally without any respiratory distress or accessory muscle use. Patient is treated symptomatically with ibuprofen. He is only here for COVID swab for work. Declines strep swab. Viral Swabs are negative. Discharged home in stable condition with expectant management. Return precautions were provided. Differential Diagnosis Differential Diagnosis: COVID, flu, RSV, strep, pneumonia Lab Data Labs: Lab Results 08/05/25 Range/Units 17:16 Influenza A (RT-PCR) Negative (Negative) Influenza B (RT-PCR) Negative (Negative) RSV (RT-PCR) Negative (Negative) SARS-CoV-2 RNA (RT-PCR) Negative (Negative) Imaging Data Radiologist's impression: ITS Impressions Chest X-Ray 08/05/25 17:34 Impression: No acute cardiopulmonary abnormality. Discharge Plan Discharge Clinical Impression: Upper respiratory infection Patient Disposition: Home Condition: Stable Instructions: Upper Respiratory Infection (ED) Additional Instructions: Your swabs for flu, COVID, RSV were negative. You can take the medications as prescribed. You can always return to the ER for any further issues. Patient Language: Sierra Leonean Prescriptions: New ibuprofen 600 mg tablet 600 mg PO TID PRN (Reason: fever or pain) Qty: 30 0RF fluticasone propionate [Allergy Relief (fluticasone)] 50 mcg/actuation spray,suspension 1 spray intranasal DAILY Qty: 16 0RF Rx Instructions: administer into each nostril No Action oseltamivir [Tamiflu] 75 mg capsule 75 mg PO Q12H 5 Days Qty: 10 0RF hydroxyzine pamoate 25 mg capsule 25 mg PO TID PRN (Reason: anxiety) Qty: 20 0RF hydroxyzine pamoate [Vistaril] 25 mg capsule 25 mg PO TID PRN (Reason: anxiety) Qty: 30 0RF hydroxyzine HCl 25 mg tablet 25 mg PO TID PRN (Reason: anxiety) Qty: 30 0RF benzonatate 100 mg capsule 100 mg PO TID PRN (Reason: cough) Qty: 14 0RF methylprednisolone [Medrol (Epi)] 4 mg tablets,dose pack See Rx Instructions .ROUTE .COMPLEX Qty: 21 0RF Rx Instructions: for 6 days albuterol sulfate 90 mcg/actuation HFA aerosol inhaler 2 puff inhalation QID PRN (Reason: shortness of breath or wheezing) Qty: 8.5 0RF benzonatate 100 mg capsule 100 mg PO TID PRN (Reason: cough) Qty: 14 0RF albuterol sulfate 90 mcg/actuation HFA aerosol inhaler 1 puff inhalation QID Qty: 6.7 0RF Follow-up/Referrals: PHYSICIAN,STONE ROUGHER [Primary Care Provider, Internal Medicine] Stand Alone Forms: Work/School Release IP
== END 2025-08-05 18:25 | disposition home or self-care (01) ==
PROVIDERS: Emergency Medicine; Emergency Provider Emergency Medicine
DX: J06.9 Acute upper respiratory infection, unspecified (principal); Z20.822 Contact with and (suspected) exposure to COVID-19
CPT/HCPCS: 71046; 87637; 99283; A9270